=== PATIENT | male | born 1985 | race Caucasian/White ===

== ENCOUNTER 2016-08-13 12:24 | Emergency (ER) | payer OTHER ==
[2016-08-13 13:15] VITALS: RESP 16
--- NOTE | 2016-08-13 13:30 | ED ---
General Adult HPI - General Chief complaint: Back Pain/Injury Stated complaint: Back Pain Time Seen by Provider: 08/13/16 13:01 Source: patient, RN notes reviewed Mode of arrival: ambulatory Limitations: no limitations - History of Present Illness Initial comments: This is a 30-year-old male presents after a fall onto the lower back that happened around 8 AM this morning. Patient states he fell off the edge of his bed onto his tailbone while trying to stand up with his walker. Patient did not hit his head or lose consciousness. Patient states he has history of recent back surgery in June 2016. Patient states he has fallen twice in the last week and a half and he is now having the same radicular pain to the right posterior thigh as he had before surgery. Patient denies any weakness or numbness. Patient is able to ambulate with his walker but states this makes the pain in the right posterior leg worse. Patient denies any change in bowel or bladder function or loss of sensation to the saddle area. Patient is not on any anticoagulants. Patient has taken a 700 mg Tylenol for the pain today but otherwise has not any current pain medication. Patient denies any recent fever , chills, shortness breath, chest pain, abdominal pain, nausea/vomiting/diarrhea , hematuria, headache, or visual changes, or any other complaints. - Related Data Home Medications Medication Instructions Recorded Confirmed Diazepam [Valium] 10 mg PO DAILY 08/13/16 08/13/16 Gabapentin [Neurontin] 800 mg PO TID 08/13/16 08/13/16 Hydroxychloroquine Sulfate 200 mg PO BID 08/13/16 08/13/16 [Plaquenil] Previous Rx's Medication Instructions Recorded HYDROcodone/APAP 5-325MG [[place] 1 tab PO Q6HR #12 tab 08/13/16 5-325] Allergies Allergy/AdvReac Type Severity Reaction Status Date / Time prednisone Allergy Rash/Hives Verified 08/13/16 13:15 Review of Systems ROS Statement: Those systems with pertinent positive or pertinent negative responses have been documented in the HPI. ROS Other: All systems not noted in ROS Statement are negative. Past Medical History Past Medical History: Rheumatoid Arthritis (RA) Additional Past Medical History / Comment(s): hepatitis C from IV drug abuse. Hx of severe dental caries. History of gout attack, DDD, spinal stenosis History of Any Multi-Drug Resistant Organisms: None Reported Past Surgical History: Back Surgery, Orthopedic Surgery Additional Past Surgical History / Comment(s): right ankle Past Anesthesia/Blood Transfusion Reactions: No Reported Reaction Past Psychological History: Panic Disorder Additional Psychological History / Comment(s): 29-year-old male, he is single, and denies children. He currently is on disability. He relates no experience or extensive travels. He has no history of animal exposures as of late. Patient does have a history of injection drug use for about 10 years ago. Heroin was his drug of choice at that point in time. Does have some ongoing marijuana use at this time. He believes he has been tested for hepatitis C and it was negative. He does not recall HIV testing. Denies any current sexual partners. 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 Neck: The neck is supple, there is no tenderness or JVD. No cervical midline tenderness. Cardiovascular: There is a regular rate and rhythm. No murmur, rub or gallop is appreciated. Respiratory: Lungs are clear to auscultation, respirations are non-labored, breath sounds are equal. No wheezes, stridor, rales, or rhonchi. Musculoskeletal: There is tenderness to palpation over the lumbar spine and sacrum. There are well-healed surgical scars from past lumbar fusion. No sign of infection or abscess. No step-offs or deformities. Full range of motion, strength 5/5 and Sensation intact. Posterior tibial pulses 2+ bilaterally. Neurological: A&O x 3. CN II-XII intact, There are no obvious motor or sensory deficits. Coordination appears grossly intact. Speech is normal. Skin: There are well-healed surgical scars past lumbar fusion Skin is warm and dry and no rashes or lesions are noted. Psychiatric: Normal mood and affect. Limitations: no limitations Course Vital Signs 08/13/16 08/13/16 13:11 14:18 Temperature 98.1 F 98.8 F Pulse Rate 78 88 Respiratory 16 16 Rate Blood Pressure 154/91 170/88 O2 Sat by Pulse 98 98 Oximetry Medical Decision Making - Medical Decision Making Is a 30-year-old male presents with lower back pain after a fall from sitting around 8 AM this morning. On physical exam There is tenderness to palpation over the lumbar spine and sacrum. There are well-healed surgical scars from past lumbar fusion. No sign of infection or abscess. No step-offs or deformities. Full range of motion, strength 5/5 and Sensation intact. Posterior tibial pulses 2+ bilaterally. Patient is able to ambulate with his walker. Xrays of the lumbar spine and sacrum/coccyx were done and reviewed showing: X- ray lumbar spine: #1 no acute osseous lesion. #2 status post interpedicular fusion L4 through S1. X-ray sacrum/coccyx: #1 No acute osseous lesion. #2 postsurgical change. Reports read by Dr. Sales. discussed results with patient. I discussed the results with patient. Discussed that patient will be given a prescription for [place]. I discussed the patient should follow-up with his surgeon as soon as possible. I discussed return parameters. I discussed warm heating pads to the area. I discussed a prescription for Flexeril, but the patient states he has Valium at home that he was given after his surgery to take for the pain. Discussed that patient should follow up with PCP in one to 2 days or return to the [facility] for any worsening symptoms or for any further concerns. Patient was receptive to this plan and patient will be discharged home. Disposition Clinical Impression: Low back pain, History of back surgery Disposition: HOME SELF-CARE Condition: Good Instructions: Chronic Back Pain (ED) Additional Instructions: Please use the medication as prescribed. Please be aware that Toledo cause drowsiness and he should avoid drinking, or driving while taking Toledo. Please follow-up with your surgeon as soon as possible. Please follow-up with family doctor in the next 2 days of symptoms have not improved. Please return to emergency room if the symptoms increase or worsen or for any other concerns. Prescriptions: HYDROcodone/APAP 5-325MG [T[place]edo 5-325] 1 tab PO Q6HR #12 tab Referrals: Solange Tong MD [Primary Care Provider] - 1-2 days Time of Disposition: 14:29
[2016-08-13 14:19] VITALS: BP 170/88; PULSE 88; TEMP 98.8
--- NOTE | 2016-08-13 14:23 | XR ---
EXAMINATION TYPE: XR sacrum coccyx DATE OF EXAM ORDERED: 08/13/2016 1:55 PM HISTORY: Pain following trauma. COMPARISON: None. FINDINGS: There is an incompletely visualized in a vertex or effusion of the lower lumbar spine. No fracture or other acute osseous lesion is seen. IMPRESSION: 1. NO ACUTE OSSEOUS LESION. 2. POSTSURGICAL CHANGE.
--- NOTE | 2016-08-13 14:24 | XR ---
EXAMINATION TYPE: XR lumbar spine 2 or 3V DATE OF EXAM ORDERED: 08/13/2016 1:55 PM HISTORY: Pain following trauma. COMPARISON: Previous study dated 07/09/2016. FINDINGS: There has been interclavicular fusion at L4, L5 and S1. Spacing material has been placed. Alignment remains normal. No fractures are seen. There is minor hypertrophic spondylosis at L2-3. The pedicles above the fusion are intact. IMPRESSION: 1. NO ACUTE OSSEOUS LESION. 2. STATUS POST INTERPEDICULAR FUSION L4-S1.
[2016-08-13] MEDS ORDERED: HYDROcodone/APAP 5-325MG 1 EACH TAB PO STA (14:25)
== END 2016-08-13 14:35 | disposition home or self-care (01) ==
LOC: EC 12:24
DX: M54.5 Low back pain (principal); W06.XXXA Fall from bed, initial encounter; M06.9 Rheumatoid arthritis, unspecified; B19.20 Unspecified viral hepatitis C without hepatic coma; Z98.1 Arthrodesis status; Z88.8 Allergy status to other drugs, medicaments and biological substances; Z79.899 Other long term (current) drug therapy
CPT/HCPCS: 72100; 72220; 99283

== ENCOUNTER → 2016-09-18 | Outpatient (CLI) | payer OTHER ==
--- NOTE | 2016-09-18 14:17 | XR ---
EXAMINATION TYPE: XR lumbar spine 2 or 3V DATE OF EXAM: 09/18/2016 2:07 PM CLINICAL HISTORY: Surgery in June progress study, lumbar disc degeneration per order. TECHNIQUE: Frontal and lateral images of the lumbar spine are obtained. COMPARISON: Lumbar spine x-ray August 13, 2016. FINDINGS: There are 5 lumbar type vertebral bodies redemonstrated. The lumbar spine redemonstrates satisfactory alignment without evidence of acute fracture or dislocation. Metallic disc material L4-L 5 and L5-S1 levels is stable. Posterior interpedicular rods and screws bilaterally from L4 through S1 levels is redemonstrated. Vertebral body heights and disk space heights are within normal limits abo ve surgical levels. Mild anterior spurring at anterior superior L3 endplate is stable. The overlying soft tissue appears unremarkable. IMPRESSION: Postsurgical changes L4-S1 level with stable and satisfactory alignment noted.
== END | disposition home or self-care (01) ==
LOC: RADXRMAIN 13:44
PROVIDERS: ATTEND Neurological Surgery
DX: M51.27 Other intervertebral disc displacement, lumbosacral region (principal); M51.36 Other intervertebral disc degeneration, lumbar region; Z98.890 Other specified postprocedural states
CPT/HCPCS: 72100

== ENCOUNTER 2016-10-27 09:36 | Emergency (ER) | payer OTHER ==
[2016-10-27] MEDS ORDERED: HYDROmorphone 1 MG/ML 1 ML SYRINGE IM STA ×2 (10:07→12:19)
--- NOTE | 2016-10-27 10:21 | ED ---
General Adult HPI - General Chief complaint: Back Pain/Injury Stated complaint: No control of bladder or stool Time Seen by Provider: 10/27/16 09:57 Source: patient, RN notes reviewed, old records reviewed Mode of arrival: wheelchair Limitations: no limitations - History of Present Illness Initial comments: 30-year-old male with history of low back disc disease, status post lumbar spinal fusion in June 2016, presenting for low back pain. Patient states that the right low portion of his back has been having worsening pain over the past several months. States that at times he gets radiating pain down his right leg. States the he was concerned because yesterday he had 2 episodes of urinary incontinence. He denies any bowel incontinence. States he is constipated at baseline. States he did follow-up with his neurosurgeon Dr. Guadalupe, one week ago who recommended he have a CT scan of his lumbar spine. He denies any new injury or fall. He has tried his home medications without much improvement of pain. - Related Data Home Medications Medication Instructions Recorded Confirmed Diazepam [Valium] 10 mg PO TID PRN 08/13/16 10/27/16 Hydroxychloroquine Sulfate 200 mg PO BID 08/13/16 10/27/16 [Plaquenil] Allopurinol [Zyloprim] 100 mg PO DAILY 10/27/16 10/27/16 Gabapentin 600 mg PO TID 10/27/16 10/27/16 Indomethacin [Indocin] 50 mg PO DAILY PRN 10/27/16 10/27/16 oxyCODONE-APAP 10-325MG [Percocet 1 tab PO TID PRN 10/27/16 10/27/16 10-325 mg] Allergies Allergy/AdvReac Type Severity Reaction Status Date / Time prednisone AdvReac Rash/Hives Verified 10/27/16 11:15 Review of Systems ROS Statement: Those systems with pertinent positive or pertinent negative responses have been documented in the HPI. ROS Other: All systems not noted in ROS Statement are negative. Past Medical History Past Medical History: Rheumatoid Arthritis (RA) Additional Past Medical History / Comment(s): hepatitis C from IV drug abuse. Hx of severe dental caries. History of gout attack, DDD, spinal stenosis History of Any Multi-Drug Resistant Organisms: None Reported Past Surgical History: Back Surgery, Orthopedic Surgery Additional Past Surgical History / Comment(s): right ankle Past Anesthesia/Blood Transfusion Reactions: No Reported Reaction Past Psychological History: Panic Disorder Additional Psychological History / Comment(s): 29-year-old male, he is single, and denies children. He currently is on disability. He relates no experience or extensive travels. He has no history of animal exposures as of late. Patient does have a history of injection drug use for about 10 years ago. Heroin was his drug of choice at that point in time. Does have some ongoing marijuana use at this time. He believes he has been tested for hepatitis C and it was negative. He does not recall HIV testing. Denies any current sexual partners. 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 No acute distress. Does not appear acutely ill. Eyes: CATA, EOM intact. No nystagmus. No scleral icterus. HENT: Atraumatic, normocephalic. Mucous membranes moist. Trachea midline. Neck: The neck is supple, there is no tenderness or JVD. Cardiovascular: Regular rate and rhythm. No murmur, rub, or gallop is appreciated. Distal pulses intact. Respiratory: Lungs are clear to auscultation bilaterally. No wheezes, rales, rhonchi. No respiratory distress. Gastrointestinal: Soft, Nontender. No rebound or guarding. Non-distended. No masses or organomegaly noted. No CVA tenderness. Musculoskeletal: Right lower back tenderness. Well healed lower back surgical incisions. Normal ROM. No gross deformity. No strength deficits. Neurological: A&Ox3. CN II-XII grossly intact, lower extremity strength is 5 out of 5 bilaterally. Sensation intact throughout lower extremities. No saddle paresthesis. Coordination appears grossly intact. Speech is normal. Normal gait. Skin: Skin is warm and dry and no rashes or lesions are noted. Psychiatric: Cooperative, appropriate mood & affect, normal judgment. Limitations: no limitations Course Vital Signs 10/27/16 10/27/16 09:51 11:53 Temperature 98.3 F 98.1 F Pulse Rate 87 76 Respiratory 18 16 Rate Blood Pressure 150/97 162/82 O2 Sat by Pulse 98 95 Oximetry Medical Decision Making - Medical Decision Making 30-year-old male with history of low back pain and disk disease. CT imaging was performed which shows anterior disc protrusion at the L2-3 interspace, however this appears unchanged from prior. Patient is without saddle paresthesias. Bladder scan did show about 470 mL of urine. However patient was able to urinate. Patient's gait is intact. Patient wa given pain control. I did attempt to contact Dr. Guadalupe, his neurosurgeon, however I was unable to reach him as he is in the OR at [facility] all day. The office stated that his only contact would be an after hours call service. I discussed this with the patient. Patient was offered transfer to [facility] versus another hospital with neurosurgical services. Offered admission at this facility for MRI. Pt declines this at this time. States his pain is much better and he feels he can go home. Recommend that he does follow up closely with neurosurgery for further pain management and evaluation of possible repair of the L2 area. Patient otherwise without evidence of acute cauda equina syndrome or acute cord compression. Discussed that it is concerning he did have bladder incontinence yesterday, but today appears stable. Discussed if symptoms are worsening to return to the emergency room right away. Pt has pain medications at home. Patient is agreeable with plan and discharge home. - Radiology Data Radiology results: report reviewed, image reviewed Disposition Clinical Impression: Low back pain, Intervertebral disk disease Disposition: HOME SELF-CARE Condition: Stable Instructions: Acute Low Back Pain (ED), Chronic Back Pain (ED) Additional Instructions: Please follow up with Dr. Guadalupe as soon as possible. If you symptoms worsen, or you have bladder incontinence, please return right away. Referrals: Solange Tong MD [Primary Care Provider] - 1-2 days Time of Disposition: 12:29
--- NOTE | 2016-10-27 11:05 | CT ---
EXAMINATION TYPE: CT sacrum wo con DATE OF EXAM: 10/27/2016 10:54 AM COMPARISON: NONE HISTORY: No control of bladder or stool; History of back surgery * 3 CT DLP: 1133 mGycm CONTRAST: None TECHNIQUE: CT of the lumbar spine is performed on a spiral scan at 3 mm thick sections. Reconstructed images are performed in the coronal and sagittal planes. FINDINGS: Disc spaces are present L4-5 L5-S1. Pedicle screws are present L4-S1. T12-L1: No focal disc herniation or significant disc bulge is evident. No spinal canal stenosis or neural foraminal stenosis is present. L1-L2: No focal disc herniation or significant disc bulge is evident. No spinal canal stenosis or n eural foraminal stenosis is present L2-L3: Broad-based disc bulge has moderate anterior thecal sac compression. No AP spinal canal stenos is is present. Neural foramen are patent. L3-L4: No focal disc herniation or significant disc bulge is evident. No spinal canal stenosis or n eural foraminal stenosis is present L4-L5, L5-S1: These levels have limited evaluation due to beam hardening artifact from the disc space rs. Spinal canal evaluation is nondiagnostic. The foramen as visualized appear within normal limits. Sacrum and coccyx: Sacrum and coccyx are evaluated utilizing 3 mm thick sections. Sacroiliac joint degenerative changes are present. No acute osseous abnormality is evident. Sacral ca nal is patent. No acute fractures are identified. Sagittal reconstructed images are reviewed. IMPRESSION: 1. Limitation due to the disc spacers at the L4-5 and L5-S1 level. 2. Disc bulging with moderate anterior thecal sac compression L2-3. No stenosis is present. 3. The lower sacrum and the coccyx appear unremarkable. 4. No canal stenosis identified to account for loss of bladder and intestinal control. Consider MRI o f the thoracolumbar junction for additional evaluation.
[2016-10-27 11:54] VITALS: BP 162/82; PULSE 76; RESP 16; TEMP 98.1
== END 2016-10-27 13:08 | disposition home or self-care (01) ==
LOC: EC 09:36
DX: M51.26 Other intervertebral disc displacement, lumbar region (principal); M10.9 Gout, unspecified; F41.0 Panic disorder [episodic paroxysmal anxiety]; M06.9 Rheumatoid arthritis, unspecified; Z79.899 Other long term (current) drug therapy; Z88.8 Allergy status to other drugs, medicaments and biological substances; Z98.1 Arthrodesis status
CPT/HCPCS: 51798; 72131; 72192; 99284; 96372 ×2; J1170

== ENCOUNTER → 2016-11-06 | Outpatient (CLI) | payer OTHER ==
--- NOTE | 2016-11-06 22:10 | MR ---
EXAMINATION TYPE: MR lumbar spine wo con DATE OF EXAM: 11/06/2016 9:44 PM COMPARISON: MRI lumbar spine April 30, 2016. Lumbar spine CT October 27, 2016. HISTORY: low back pain, previous surgery 2 years ago TECHNIQUE: Multiplanar, multisequence imaging of the lumbar spine is performed without IV contrast. FINDINGS: Sagittal images of the lumbar spine show vertebral body heights and alignment to appear sat isfactory. There is artifact from metallic disc material L4-L5 and L5-S1 levels. There is artifact fr om posterior fusion hardware L4-S1 levels bilaterally. Multilevel disc desiccation is redemonstrated above surgical levels. There is redemonstration of mild to moderate disc space narrowing L2-L3 level. Small posterior disc herniation is redemonstrated this level on sagittal images. The conus medullar is is normal remains normal in position and signal ending at inferior L1 vertebral body level. The erlinda ne marrow signal intensity is within normal limits. Mild multilevel anterior spurring is redemonstrat ed most prominent anterior superior L3 endplate. Axial images at T12-L1 level demonstrates mild broad disc bulge minimally effacing anterior thecal sa c, bilateral neural foramina are patent. No significant change from prior study is seen. Axial images at L1-L2 level are felt to remain within normal limits. Axial images at L2-L3 level show mild to moderate broad-based posterior disc protrusion mildly effaci ng anterior thecal sac on axial image 31 with mild bilateral anterior inferior neural foraminal narro wing. No significant change from prior study is seen. Axial images at L3-L4 level show broad-based disc protrusion mildly effacing anterior thecal sac, mil d bilateral neural foraminal narrowing is present. No significant change from prior study is seen. Axial images at L4-L5 level show artifact from posterior fusion hardware. Spinal canal is preserved a fter disc replacement. Left-sided neural foramen is patent. Right-sided is obscured by artifact. Axial images at L5-S1 level show artifact from surgical hardware suspect bilateral laminectomy defect s with scar tissue. Spinal canal is fairly well preserved. Left-sided neural foramen is patent. Right side is likely narrowed but obscured by artifact from fusion hardware. IMPRESSION: Interval improvement in lower lumbar levels after surgical change. Suboptimal evaluation of right-sided neural foramina due to artifact. Multilevel degenerative changes in the upper to mid l umbar spine as detailed above most prominent at L2-L3 level.
== END | disposition home or self-care (01) ==
LOC: RADMRIMAIN 09:11
PROVIDERS: ATTEND Neurological Surgery
DX: M47.816 Spondylosis without myelopathy or radiculopathy, lumbar region (principal); E66.09 Other obesity due to excess calories; M06.09 Rheumatoid arthritis without rheumatoid factor, multiple sites; M15.0 Primary generalized (osteo)arthritis; Z79.52 Long term (current) use of systemic steroids; Z79.899 Other long term (current) drug therapy; Z98.890 Other specified postprocedural states
CPT/HCPCS: 36415; 72148; 82040; 82565; 84450; 84460; 84520; 84550; 85025; 86038; 86140; 86200; 86431

== ENCOUNTER → 2016-11-06 | Outpatient (CLI) | payer OTHER ==
[2016-11-06 10:12] LABS: Basophils % (A) 0 %; CH 28.8; CHCM 34.9; Eosinophils # (A) 0.1 k/uL (0-0.7); Eosinophils % (A) 1 %; HCT 46.2 % (39.0-53.0); HDW 3.11; HGB 15.7 gm/dL (13.0-17.5); Luc # (Auto) 0.11; Luc % (Auto) 1; Lymphocytes # (A) 1.6 k/uL (1.0-4.8); Lymphocytes % (A) 17 %; MCH 28.2 pg (25.0-35.0); MCHC 34.1 g/dL (31.0-37.0); MCV 82.8 fL (80.0-100.0); Mean Platelet Volume 7.6; Monocytes # (A) 0.3 k/uL (0-1.0); Monocytes % (A) 3 %; Neutrophils # (A) 7.3 k/uL (1.3-7.7); Neutrophils % (A) 78 %; RBC 5.58 m/uL (4.30-5.90); RDW 13.9 % (11.5-15.5); WBC 9.4 k/uL (3.8-10.6); WBC (Perox) 9.55
[2016-11-06 11:32] LABS: ALT 26 U/L (21-72); AST 25 U/L (17-59); Blood Urea Nitrogen 17 mg/dL (9-20); C Reactive Protein <5.0 mg/L (<10.0); Non-African American GFR(MDRD) >60 (>60 ml/min/1.73 sqM)
[2016-11-06 11:35] LABS: Rheumatoid Factor, Qnt <9 IU/mL (<12)
--- NOTE | 2016-11-06 15:55 | XR ---
EXAMINATION TYPE: 4 views bilateral wrists. 3 views bilateral hands. DATE OF EXAM: 11/06/2016 11:31 AM COMPARISON: NONE HISTORY: 30-year-old male long-term drug therapy, rheumatoid arthritis. FINDINGS: Wrist: Slight negative ulnar variance on both sides. The radiocarpal and distal radioulnar joints as well as the midcarpal compartment appear intact. On the right, small cystic changes present within the lunat e probably representing an intraosseous ganglion. No erosions of the ulnar styloid process or carpal or intercarpal joint space narrowing. Hands: No discrete marginal erosions. No narrowing of the IP joints. There may be slight periarticular osteo penia within the fingers. IMPRESSION: 1. Slight periarticular osteopenia of the fingers and possible small subcortical cysts versus intraos seous ganglion within the right lunate bone. 2. Otherwise, no marginal erosions or joint space narrowing of RA.
== END ==
LOC: LABWHC1 09:27
PROVIDERS: ATTEND Internal Medicine Rheumatology
DX: M06.09 Rheumatoid arthritis without rheumatoid factor, multiple sites (principal); M15.0 Primary generalized (osteo)arthritis; E66.09 Other obesity due to excess calories; Z79.899 Other long term (current) drug therapy; Z79.52 Long term (current) use of systemic steroids; M47.816 Spondylosis without myelopathy or radiculopathy, lumbar region
CPT/HCPCS: 36415; 82040; 82565; 84450; 84460; 84520; 84550; 85025; 86038; 86140; 86200; 86431

== ENCOUNTER 2016-12-30 08:54 | Emergency (ER) | payer OTHER ==
--- NOTE | 2016-12-30 09:15 | ED ---
Back Pain HPI - General Chief Complaint: Back Pain/Injury Stated Complaint: Back Pain Time Seen by Provider: 12/30/16 09:03 Source: patient, RN notes reviewed Limitations: no limitations - History of Present Illness Initial Comments: This a 31-year-old male presents emergency Department chief complaint low back pain. Patient states he had surgery in June which she has hardware in his lumbar spine. Patient states that on Thursday he was at a baseball came in which he fell on the steps due to the rain. Patient states he fell directly onto his back. Patient denies any bowel bladder incontinence or retention. Patient does admit to radiating pain down bilateral legs to his feet. Patient did not contact his surgeon at this point. Patient denies any saddle anesthesias or lower extremity paresthesias. Patient has increased pain with movement states it is better when he is laying down. Patient is currently taking Percocet for his pain. Patient states his surgeon was Dr. Guadalupe. Patient denies any other complaints at this time. - Related Data Home Medications Medication Instructions Recorded Confirmed Diazepam [Valium] 10 mg PO TID 08/13/16 12/30/16 Hydroxychloroquine Sulfate 200 mg PO BID 08/13/16 12/30/16 [Plaquenil] Allopurinol [Zyloprim] 100 mg PO DAILY 10/27/16 12/30/16 Gabapentin 600 mg PO TID 10/27/16 12/30/16 oxyCODONE-APAP 10-325MG [Percocet 1 tab PO TID PRN 10/27/16 12/30/16 10-325 mg] Colchicine 0.6 mg PO DAILY 12/30/16 12/30/16 Meloxicam [Mobic] 15 mg PO DAILY 12/30/16 12/30/16 predniSONE 5 mg PO DAILY 12/30/16 12/30/16 Allergies Allergy/AdvReac Type Severity Reaction Status Date / Time No Known Allergies Allergy Verified 12/30/16 09:33 Review of Systems ROS Statement: Those systems with pertinent positive or pertinent negative responses have been documented in the HPI. ROS Other: All systems not noted in ROS Statement are negative. Past Medical History Past Medical History: Rheumatoid Arthritis (RA) Additional Past Medical History / Comment(s): hepatitis C from IV drug abuse. Hx of severe dental caries. History of gout attack, DDD, spinal stenosis History of Any Multi-Drug Resistant Organisms: None Reported Past Surgical History: Back Surgery, Orthopedic Surgery Additional Past Surgical History / Comment(s): right ankle. back fusion with cage Lumbar Past Anesthesia/Blood Transfusion Reactions: No Reported Reaction Past Psychological History: Panic Disorder Smoking Status: Never smoker Past Alcohol Use History: None Reported Past Drug Use History: None Reported General Exam Limitations: no limitations General appearance: alert, in no apparent distress Neck exam: Present: normal inspection, full ROM. Absent: tenderness, meningismus, lymphadenopathy Respiratory exam: Present: normal lung sounds bilaterally. Absent: respiratory distress, wheezes, rales, rhonchi, stridor Cardiovascular Exam: Present: regular rate, normal rhythm, normal heart sounds. Absent: systolic murmur, diastolic murmur, rubs, gallop, clicks GI/Abdominal exam: Present: soft, normal bowel sounds. Absent: distended, tenderness, guarding, rebound, rigid Extremities exam: Present: normal inspection, full ROM, normal capillary refill , other (Lower extremity strength equal bilaterally, full range of motion neurovascular intact equal color equal warmth). Absent: tenderness, pedal edema , joint swelling, calf tenderness Back exam: Present: full ROM (Moderate discomfort with range of motion), tenderness (Diffuse lumbar moderate), paraspinal tenderness, vertebral tenderness, other (Minimal discomfort with straight leg raise bilaterally). Absent: normal inspection (Old surgical scars noted) Neurological exam: Present: alert, oriented X3, CN II-XII intact, reflexes normal. Absent: motor sensory deficit Skin exam: Present: warm, dry, intact, normal color. Absent: rash Course Vital Signs 12/30/16 08:58 Temperature 98.7 F Pulse Rate 95 Respiratory 20 Rate Blood Pressure 197/99 O2 Sat by Pulse 97 Oximetry Medical Decision Making - Medical Decision Making 31-year-old male present emergency department for fall back pain. There is no interval changes noted on his x-ray ordered abnormality's of his postsurgical changes. Patient did have some wedging of T12 though patient is no tenderness over this region. This likely is old or developmental. Patient has no red flag symptoms. He is highly advised to follow-up with his surgeon within the next one to 2 days and that he may require MRI ordered by his surgeon. Patient is on chronic pain meds do not given a prescription for pain meds at this time. Return parameters were discussed. Disposition Clinical Impression: Lumbar back pain Disposition: HOME SELF-CARE Condition: Stable Instructions: Chronic Back Pain (ED) Additional Instructions: Please return to the Emergency Department if symptoms worsen or any other concerns. Follow-up with your surgeon in the next one to 2 days. Referrals: Solange Tong MD [Primary Care Provider] - 1-2 days Time of Disposition: 09:37
--- NOTE | 2016-12-30 09:28 | XR ---
EXAMINATION TYPE: XR lumbar spine 2 or 3V DATE OF EXAM ORDERED: 12/30/2016 HISTORY: Pain. COMPARISON: Previous study dated 09/18/2016. FINDINGS: There has been a previous interpedicular fusion with spacer placement at L4, L5 and S1. Po sition and alignment appear normal and unchanged. There is mild hypertrophic spondylosis at L3-4 unch anged from previous. There is minimal wedging of the T12 vertebral body which is likely developmental . This area was not well imaged on the previous study and is not imaged on a CT scan dated 10/17/2016. Nor was it imaged on a previous MRI dated 11/06/2016. IMPRESSION: 1. STATUS POST INTERPEDICULAR FUSION, L4 S1. 2. MINIMAL WEDGING OF THE T12 VERTEBRAL BODY LIKELY DEVELOPMENTAL.
[2016-12-30] MEDS ORDERED: HYDROmorphone 1 MG/ML 1 ML SYRINGE IM STA (09:37)
[2016-12-30 09:48] VITALS: PULSE 87; RESP 17; TEMP 98.3
[2016-12-30 09:55] VITALS: BP 156/102
== END 2016-12-30 10:04 | disposition home or self-care (01) ==
LOC: EC 08:54
DX: M54.5 Low back pain (principal); M06.9 Rheumatoid arthritis, unspecified; F41.0 Panic disorder [episodic paroxysmal anxiety]; Z79.52 Long term (current) use of systemic steroids; Z79.1 Long term (current) use of non-steroidal anti-inflammatories (NSAID); Z79.899 Other long term (current) drug therapy; W10.9XXA Fall (on) (from) unspecified stairs and steps, initial encounter; Y93.64 Activity, baseball; Y92.320 Baseball field as the place of occurrence of the external cause
CPT/HCPCS: 72100; 99283; 96372; J1170

== ENCOUNTER 2017-01-03 12:14 | Emergency (ER) | payer OTHER ==
[2017-01-03 12:39] VITALS: BP 155/89; PULSE 99; RESP 20; TEMP 98.5
[2017-01-03] MEDS ORDERED: HYDROmorphone 1 MG/ML 1 ML SYRINGE IM STA (12:41)
--- NOTE | 2017-01-03 12:50 | ED ---
Back Pain HPI - General Chief Complaint: Back Pain/Injury Stated Complaint: Back Pain, post surgical Time Seen by Provider: 01/03/17 12:21 Source: patient Limitations: no limitations - History of Present Illness Initial Comments: 31-year-old male complains of ongoing back pain that chronic very patient states he had surgery in June had a fusion from a neurosurgeon in [place]. Patient states a week ago he fell at a tigers game slipped and fell on the cement steps. Patient states he did come here this past week and was given pain medications. Patient was told to follow-up with his surgeon in which she did call but he never got a call back today he got the on-call surgeon due to them not being familiar with them they told him to call back on Thursday. Patient states his pain is worse he canceled physical therapy appointments this week. He denies any bowel bladder incontinence or saddle numbness. He denies any abdominal pain. Patient states he is having a lot of hard time getting comfortable. Patient has a chronic history of rheumatoid arthritis and chronic gout as well. Patient has been on prednisone for the last year and has gained a lot of weight. Eyes any neck pain or head injury at this time. MD Complaint: back pain -: days(s) Place: other Radiation: right leg Quality: aching Improves With: immobilization Worsens With: none, immobilization - Related Data Home Medications Medication Instructions Recorded Confirmed Diazepam [Valium] 10 mg PO TID 08/13/16 12/30/16 Hydroxychloroquine Sulfate 200 mg PO BID 08/13/16 12/30/16 [Plaquenil] Allopurinol [Zyloprim] 100 mg PO DAILY 10/27/16 12/30/16 Gabapentin 600 mg PO TID 10/27/16 12/30/16 oxyCODONE-APAP 10-325MG [Percocet 1 tab PO TID PRN 10/27/16 12/30/16 10-325 mg] Colchicine 0.6 mg PO DAILY 12/30/16 12/30/16 Meloxicam [Mobic] 15 mg PO DAILY 12/30/16 12/30/16 predniSONE 5 mg PO DAILY 12/30/16 12/30/16 Allergies Allergy/AdvReac Type Severity Reaction Status Date / Time No Known Allergies Allergy Verified 01/03/17 12:39 Review of Systems ROS Statement: Those systems with pertinent positive or pertinent negative responses have been documented in the HPI. ROS Other: All systems not noted in ROS Statement are negative. Constitutional: Denies: fever Endocrine: Denies: fatigue Gastrointestinal: Denies: abdominal pain, nausea, vomiting, diarrhea, constipation Musculoskeletal: Reports: back pain Skin: Denies: rash Neurological: Reports: weakness, abnormal gait (slow). Denies: headache, numbness, paresthesias Past Medical History Past Medical History: Rheumatoid Arthritis (RA) Additional Past Medical History / Comment(s): hepatitis C from IV drug abuse. Hx of severe dental caries. History of gout attack, DDD, spinal stenosis History of Any Multi-Drug Resistant Organisms: None Reported Past Surgical History: Back Surgery, Orthopedic Surgery Additional Past Surgical History / Comment(s): right ankle. back fusion with cage Lumbar Past Anesthesia/Blood Transfusion Reactions: No Reported Reaction Past Psychological History: Panic Disorder Smoking Status: Never smoker Past Alcohol Use History: None Reported Past Drug Use History: None Reported General Exam Limitations: no limitations General appearance: alert, in no apparent distress Neck exam: Present: normal inspection. Absent: tenderness, meningismus, lymphadenopathy Respiratory exam: Present: normal lung sounds bilaterally. Absent: respiratory distress, wheezes, rales, rhonchi, stridor Cardiovascular Exam: Present: regular rate, normal rhythm, normal heart sounds. Absent: systolic murmur, diastolic murmur, rubs, gallop, clicks GI/Abdominal exam: Present: soft, normal bowel sounds. Absent: distended, tenderness, guarding, rebound, rigid Back exam: Present: tenderness (lower back), muscle spasm, paraspinal tenderness , vertebral tenderness. Absent: full ROM, rash noted Neurological exam: Present: alert, oriented X3, CN II-XII intact, abnormal gait , reflexes normal Psychiatric exam: Present: normal affect, normal mood Skin exam: Present: warm, dry, intact, normal color. Absent: rash Course Vital Signs 01/03/17 12:33 Temperature 98.5 F Pulse Rate 99 Respiratory 20 Rate Blood Pressure 155/89 O2 Sat by Pulse 96 Oximetry Medical Decision Making - Medical Decision Making Patient had x-rays 2 days ago while here. Patient advised to closely follow-up with neurosurgeon for further evaluation and testing. Patient had a follow-up MRI about a month ago and is currently in physical therapy. Patient to continue with his current medical regimen and return if anything worsens. Disposition Clinical Impression: Degeneration of intervertebral disc, Strain of lumbar region, Sciatica, Lumbar radiculopathy Disposition: HOME SELF-CARE Condition: Stable Instructions: Acute Low Back Pain (ED), Chronic Back Pain (ED) Referrals: Solange Tong MD [Primary Care Provider] - 1-2 days Time of Disposition: 12:49
== END 2017-01-03 13:05 | disposition home or self-care (01) ==
LOC: EC 12:14
DX: M51.16 Intervertebral disc disorders with radiculopathy, lumbar region (principal); S39.012D Strain of muscle, fascia and tendon of lower back, subsequent encounter; M06.9 Rheumatoid arthritis, unspecified; M10.9 Gout, unspecified; Z79.1 Long term (current) use of non-steroidal anti-inflammatories (NSAID); Z79.52 Long term (current) use of systemic steroids; Z79.899 Other long term (current) drug therapy; Z98.1 Arthrodesis status; W01.0XXD Fall on same level from slipping, tripping and stumbling without subsequent striking against object, subsequent encounter
CPT/HCPCS: 99283; 96372; J1170

== ENCOUNTER → 2017-01-03 | Outpatient (CLI) | payer OTHER ==
[2017-01-03 11:58] LABS: Basophils % (A) 0 %; CH 29.9; CHCM 35.1; Eosinophils # (A) 0.1 k/uL (0-0.7); Eosinophils % (A) 1 %; HCT 44.8 % (39.0-53.0); HDW 2.87; HGB 15.3 gm/dL (13.0-17.5); Luc # (Auto) 0.12; Luc % (Auto) 2; Lymphocytes # (A) 1.7 k/uL (1.0-4.8); Lymphocytes % (A) 22 %; MCH 29.1 pg (25.0-35.0); MCHC 34.1 g/dL (31.0-37.0); MCV 85.3 fL (80.0-100.0); Mean Platelet Volume 7.8; Monocytes # (A) 0.3 k/uL (0-1.0); Monocytes % (A) 4 %; Neutrophils # (A) 5.6 k/uL (1.3-7.7); Neutrophils % (A) 72 %; RBC 5.26 m/uL (4.30-5.90); RDW 13.7 % (11.5-15.5); WBC 7.8 k/uL (3.8-10.6); WBC (Perox) 7.29
[2017-01-03 12:13] LABS: ALT 39 U/L (21-72); AST 31 U/L (17-59); Blood Urea Nitrogen 15 mg/dL (9-20); C Reactive Protein 6.1 mg/L (<10.0); Non-African American GFR(MDRD) >60 (>60 ml/min/1.73 sqM); Uric Acid 6.8 mg/dL (3.5-8.5)
== END | disposition home or self-care (01) ==
LOC: LABWHC1 11:33
PROVIDERS: ATTEND Internal Medicine Rheumatology
DX: E66.09 Other obesity due to excess calories (principal); M06.09 Rheumatoid arthritis without rheumatoid factor, multiple sites; M15.0 Primary generalized (osteo)arthritis; M47.816 Spondylosis without myelopathy or radiculopathy, lumbar region; Z79.52 Long term (current) use of systemic steroids; Z79.899 Other long term (current) drug therapy
CPT/HCPCS: 36415; 82040; 82565; 84450; 84460; 84520; 84550; 85025; 86140

== ENCOUNTER 2017-03-02 19:11 | Emergency (ER) | payer OTHER ==
[2017-03-02 19:21] VITALS: BP 186/115; PULSE 79; RESP 18; TEMP 98.4
[2017-03-02] MEDS ORDERED: PENICILLIN G BENZATHINE 1,200,000 UNIT/2 ML SYRINGE IM STA (20:21)
[2017-03-02] MEDS ORDERED: HYDROmorphone 1 MG/ML 1 ML SYRINGE IM STA (20:22)
[2017-03-02] MEDS ORDERED: ONDANSETRON ODT 4 MG TAB PO STA (20:22)
--- NOTE | 2017-03-02 20:58 | ED ---
ENT HPI - General Chief complaint: Dental/Oral Stated complaint: Dental Pain Time Seen by Provider: 03/02/17 20:05 Source: patient, family Mode of arrival: ambulatory Limitations: no limitations - History of Present Illness Initial comments: 31-year-old male patient presented to emergency department today for evaluation of right upper dental pain. Patient states that he started to have pain on Thursday. He states he did attempt to call for a dentist appointment however could not get in until this coming Thursday. He states that the pain is severe, however he has been nauseated and did vomit this morning and has been unable to take his home pain medication. Patient states that he thinks he may have an abscess. Patient states that he felt like he had a fever last evening. He denies any difficulty opening his mouth or swallowing. He states that the pain is causing a headache. Patient denies any chills, shortness breath, abdominal pain, constipation, diarrhea, numbness, tingling, hematuria, headache, or visual changes. States he has chronic back pain and he takes oxycodone for this. - Related Data Home Medications Medication Instructions Recorded Confirmed Diazepam [Valium] 10 mg PO TID 08/13/16 03/02/17 Hydroxychloroquine Sulfate 200 mg PO BID 08/13/16 03/02/17 [Plaquenil] Allopurinol [Zyloprim] 100 mg PO DAILY 10/27/16 03/02/17 Gabapentin 600 mg PO TID 10/27/16 03/02/17 oxyCODONE-APAP 10-325MG [Percocet 1 tab PO TID PRN 10/27/16 03/02/17 10-325 mg] Colchicine 0.6 mg PO DAILY 12/30/16 03/02/17 Meloxicam [Mobic] 15 mg PO DAILY 12/30/16 03/02/17 Lyrica (Unknown Dose) 1 dose DIRECTED 03/02/17 03/02/17 Previous Rx's Medication Instructions Recorded Amoxic-Pot Clav 875-125Mg 1 tab PO Q12HR #20 tablet 03/02/17 [Augmentin 875-125] Allergies Allergy/AdvReac Type Severity Reaction Status Date / Time prednisone Allergy Rash/Hives Verified 03/02/17 20:28 Review of Systems ROS Statement: Those systems with pertinent positive or pertinent negative responses have been documented in the HPI. ROS Other: All systems not noted in ROS Statement are negative. Past Medical History Past Medical History: Rheumatoid Arthritis (RA) Additional Past Medical History / Comment(s): hepatitis C from IV drug abuse. Hx of severe dental caries. History of gout attack, DDD, spinal stenosis History of Any Multi-Drug Resistant Organisms: None Reported Past Surgical History: Back Surgery, Orthopedic Surgery Additional Past Surgical History / Comment(s): right ankle. back fusion with cage Lumbar Past Anesthesia/Blood Transfusion Reactions: No Reported Reaction Past Psychological History: Panic Disorder Smoking Status: Never smoker Past Alcohol Use History: None Reported Past Drug Use History: None Reported General Exam Limitations: no limitations General appearance: alert, in no apparent distress ENT exam: Present: normal exam, normal oropharynx, mucous membranes moist, other (Mouth exam reveals very poor dentition. Patient has numerous broken teeth on the right upper, gingiva is swollen and red, no drainable area of abscess. No facial swelling noted.) Neck exam: Present: normal inspection. Absent: tenderness, meningismus, lymphadenopathy Respiratory exam: Present: normal lung sounds bilaterally. Absent: respiratory distress, wheezes, rales, rhonchi, stridor Cardiovascular Exam: Present: regular rate, normal rhythm, normal heart sounds. Absent: systolic murmur, diastolic murmur, rubs, gallop, clicks GI/Abdominal exam: Present: soft, normal bowel sounds. Absent: distended, tenderness, guarding, rebound, rigid Neurological exam: Present: alert, oriented X3, CN II-XII intact Psychiatric exam: Present: normal affect, normal mood, anxious Skin exam: Present: warm, dry, intact, normal color. Absent: rash Course Vital Signs 03/02/17 19:16 Temperature 98.4 F Pulse Rate 79 Respiratory 18 Rate Blood Pressure 186/115 O2 Sat by Pulse 99 Oximetry Medical Decision Making - Medical Decision Making 31-year-old male patient presented to emergency department today for evaluation of right upper dental pain. Physical exam did reveal multiple fractured teeth at the gumline, gingival erythema and swelling. No area of drainable abscess palpated. Patient was also having some nausea, and states he was unable to take his home pain or chronic medications. Patient was given injections of penicillin, Dilaudid, and Zofran ODT. Patient was feeling much improved prior to discharge. Patient states that he was able to hold down water. Patient was discharged with a prescription for Augmentin and instructed to take his home pain medications. Patient does have an appointment with a dentist on Thursday. He is encouraged to keep this appointment. Instructed to follow up with his primary care physician for recheck in 1-2 days. Instructed to return here immediately for any new, worsening, or concerning symptoms. Patient verbalizes understanding and agrees with this plan. Disposition Clinical Impression: Dental abscess, Fractured tooth Disposition: HOME SELF-CARE Condition: Good Instructions: Dental Abscess (ED), Dental Caries (ED), Toothache (ED) Additional Instructions: Swished with ice water. Keep dentist on Thursday. Complete antibiotic prescription in full. Take-home pain medications as directed. Use Zofran for nausea. Return immediately for any new, worsening, or concerning symptoms. Prescriptions: Amoxic-Pot Clav 875-125Mg [Augmentin 875-125] 1 tab PO Q12HR #20 tablet Referrals: Solange Tong MD [Primary Care Provider] - 1-2 days Time of Disposition: 21:00
[2017-03-02] MEDS ORDERED: ONDANSETRON 4 MG ODT STARTER PACK 2 TAB BTL PO STA (21:00)
== END 2017-03-02 21:41 | disposition home or self-care (01) ==
LOC: EC 19:11
DX: S02.5XXA Fracture of tooth (traumatic), initial encounter for closed fracture (principal); K04.7 Periapical abscess without sinus; R11.2 Nausea with vomiting, unspecified; R50.9 Fever, unspecified; R51 Headache; M06.9 Rheumatoid arthritis, unspecified; F41.0 Panic disorder [episodic paroxysmal anxiety]; X58.XXXA Exposure to other specified factors, initial encounter; Z79.899 Other long term (current) drug therapy
CPT/HCPCS: 99282; 96372 ×2; J0561; J1170; S0119

== ENCOUNTER → 2017-03-10 | Outpatient (CLI) | payer OTHER ==
--- NOTE | 2017-03-10 10:21 | XR ---
EXAMINATION TYPE: XR lumbar spine 2 or 3V , 3 VIEWS DATE OF EXAM ORDERED: 03/10/2017 HISTORY: M51.36 deg of lumbar. COMPARISON: Previous study dated 12/30/2016. FINDINGS: There has been an interpedicular fusion at L4-5 and L5-S1. Its spacing material was placed. There is a mild dextroscoliosis. Vertebral body height and alignment are maintained. There is mild hypertrophic spondylosis at L2-3. T here is minimal wedging of the L1 vertebral body, likely developmental.. IMPRESSION: 1. STATUS POST INTERPEDICULAR FUSION L4 TO S1. 2. MILD DEGENERATIVE CHANGE.
== END | disposition home or self-care (01) ==
LOC: RADXRMAIN 09:52
PROVIDERS: ATTEND Neurological Surgery
DX: M47.816 Spondylosis without myelopathy or radiculopathy, lumbar region (principal); Z98.1 Arthrodesis status
CPT/HCPCS: 72100

== ENCOUNTER → 2017-03-30 | Outpatient (CLI) | payer OTHER ==
[2017-03-30 11:39] LABS: ALT 47 U/L (21-72); AST 42 U/L (17-59); Blood Urea Nitrogen 13 mg/dL (9-20); C Reactive Protein 10.9 mg/L (<10.0); Non-African American GFR(MDRD) >60 (>60 ml/min/1.73 sqM); Uric Acid 9.1 mg/dL (3.5-8.5)
[2017-03-30 12:03] LABS: Basophils % (A) 1 %; CH 30.5; CHCM 35.7; Eosinophils # (A) 0.1 k/uL (0-0.7); Eosinophils % (A) 2 %; HCT 45.7 % (39.0-53.0); HDW 3.11; HGB 15.2 gm/dL (13.0-17.5); Luc # (Auto) 0.13; Luc % (Auto) 2; Lymphocytes # (A) 1.6 k/uL (1.0-4.8); Lymphocytes % (A) 26 %; MCH 28.5 pg (25.0-35.0); MCHC 33.1 g/dL (31.0-37.0); Mean Platelet Volume 8.2; Monocytes # (A) 0.5 k/uL (0-1.0); Monocytes % (A) 8 %; Neutrophils # (A) 3.9 k/uL (1.3-7.7); Neutrophils % (A) 62 %; RBC 5.32 m/uL (4.30-5.90); RDW 14.7 % (11.5-15.5); WBC 6.3 k/uL (3.8-10.6); WBC (Perox) 6.45
== END | disposition home or self-care (01) ==
LOC: LABWHC1 10:55
PROVIDERS: ATTEND Internal Medicine Rheumatology
DX: E66.09 Other obesity due to excess calories (principal); M06.09 Rheumatoid arthritis without rheumatoid factor, multiple sites; M15.0 Primary generalized (osteo)arthritis; M47.816 Spondylosis without myelopathy or radiculopathy, lumbar region; M79.7 Fibromyalgia; Z79.52 Long term (current) use of systemic steroids; Z79.899 Other long term (current) drug therapy
CPT/HCPCS: 36415; 82040; 82565; 84450; 84460; 84520; 84550; 85025; 86140

== ENCOUNTER → 2017-04-09 | Outpatient (CLI) | payer OTHER ==
--- NOTE | 2017-04-09 23:07 | MR ---
EXAMINATION TYPE: MR cervical spine wo con DATE OF EXAM: 04/09/2017 COMPARISON: NONE HISTORY: Spondylosis w/ radiculopathy, Neck pain x2 months TECHNIQUE: Multiplanar, multisequence images of the cervical spine were acquired. The cervical vertebra have normal spacing and alignment. Posterior elements are intact. Brainstem is intact. Cervical spinal cord has normal signal pattern. There is no edema. I see no bony destructive process. There is no evidence of paraspinal mass. IMPRESSION: Normal MR scan of the cervical spine.
== END | disposition home or self-care (01) ==
LOC: RADMRIMAIN 20:17
PROVIDERS: ATTEND Neurological Surgery
DX: M47.22 Other spondylosis with radiculopathy, cervical region (principal)
CPT/HCPCS: 72141

== ENCOUNTER → 2017-06-03 | Outpatient (CLI) | payer OTHER ==
--- NOTE | 2017-06-03 07:22 | US ---
EXAMINATION TYPE: US abdomen complete DATE OF EXAM: 06/03/2017 COMPARISON: NONE CLINICAL HISTORY: R76.8 HEP C. EXAM MEASUREMENTS: Liver Length: 16.1 cm Gallbladder Wall: 0.2 cm CBD: 0.5 cm Spleen: 12.8 cm Right Kidney: 12.4 x 4.4 x 5.1 cm Left Kidney: 12.7 x 4.7 x 6.7 cm Pancreas: not well visualized Liver: difficult to penetrate Gallbladder: No stones seen Evidence for sonographic Siegel's sign: No CBD: wnl Spleen: wnl Right Kidney: No hydronephrosis or masses seen Left Kidney: No hydronephrosis or masses seen Upper IVC: wnl Abd Aorta: wnl The liver is heterogenous and hyperechoic, limiting evaluation for hepatic masses The intrahepatic po rtion of the IVC and proximal abdominal aorta are within normal limits. There is no evidence of chol elithiasis. Common bile duct is unremarkable. The pancreas is not well visualized. The spleen is u nremarkable. Kidneys are symmetric and free of hydronephrosis. No renal lesions are seen. IMPRESSION: 1. Coarsened and hyperechoic hepatic echotexture compatible with the patient's known history of under lying hepatocellular disease. No sonographic focal hepatic masses. MRI could also be utilized for rebecca veillance. 2. Mildly prominent size of the spleen that does not yet meet criteria for splenomegaly.
== END | disposition home or self-care (01) ==
LOC: RADUSWWP 06:49
PROVIDERS: ATTEND Family Medicine
DX: R76.8 Other specified abnormal immunological findings in serum (principal)
CPT/HCPCS: 76700

== ENCOUNTER 2017-09-25 05:24 | Emergency (ER) | payer OTHER ==
[2017-09-25] MEDS ORDERED: MORPHINE SULFATE 4 MG/ML SYRINGE IV STA (05:50)
[2017-09-25] MEDS ORDERED: ONDANSETRON 4 MG/2 ML VIAL IVP STA (05:50)
[2017-09-25] MEDS ORDERED: SODIUM CHLORIDE 0.9% 1,000 ML IV STA ×2 (05:50)
--- NOTE | 2017-09-25 05:55 | ED ---
Abdominal Pain HPI - General Source: patient Mode of arrival: ambulatory Limitations: no limitations <Wilma Aguilar - Last Filed: 09/25/17 07:40> <Duke Wilkinson - Last Filed: 09/25/17 08:53> - General Chief Complaint: Abdominal Pain Stated Complaint: flank pain Time Seen by Provider: 09/25/17 05:46 - History of Present Illness Initial Comments: 31 years old male presents with excruciating pain in the left upper quadrant area and the left flank area he said pain been there for about 5 days now he denies any trauma he said it started 5 days ago but got worse over the last 2 days he does have a history of hypertension and rheumatoid arthritis and hepatitis C. Been nauseous denies any diarrhea or vomiting denies any fever or chills. No Frequency Urgency Dysuria No Symptoms of TIA or CVA (Wilma Aguilar) - Related Data Home Medications Medication Instructions Recorded Confirmed Hydroxychloroquine Sulfate 200 mg PO DAILY 08/13/16 09/25/17 [Plaquenil] Allopurinol [Zyloprim] 100 mg PO DAILY 10/27/16 09/25/17 Colchicine 0.6 mg PO DAILY 12/30/16 09/25/17 Meloxicam [Mobic] 15 mg PO DAILY 12/30/16 09/25/17 Amitriptyline HCl [Elavil] 75 mg PO HS 08/16/17 09/25/17 Baclofen [Lioresal] 10 mg PO Q8H 08/16/17 09/25/17 Gabapentin 800 mg PO Q8H 08/16/17 09/25/17 Morphine Sulfate Ir [Msir] 15 mg PO QID PRN 08/16/17 09/25/17 Previous Rx's Medication Instructions Recorded Dicyclomine [Bentyl] 20 mg PO QID #15 tablet 09/25/17 Allergies Allergy/AdvReac Type Severity Reaction Status Date / Time prednisone Allergy Rash/Hives Verified 09/25/17 08:14 Review of Systems ROS Other: All systems not noted in ROS Statement are negative. <Wilma Aguilar - Last Filed: 09/25/17 07:40> ROS Other: All systems not noted in ROS Statement are negative. <Duke Wilkinson - Last Filed: 09/25/17 08:53> ROS Statement: Those systems with pertinent positive or pertinent negative responses have been documented in the HPI. Past Medical History Past Medical History: Hypertension, Rheumatoid Arthritis (RA) Additional Past Medical History / Comment(s): hepatitis C from IV drug abuse. Hx of severe dental caries. History of gout attack, DDD, spinal stenosis History of Any Multi-Drug Resistant Organisms: None Reported Past Surgical History: Back Surgery, Orthopedic Surgery Additional Past Surgical History / Comment(s): right ankle. back fusion with cage Lumbar X3 Past Anesthesia/Blood Transfusion Reactions: No Reported Reaction Past Psychological History: Panic Disorder Smoking Status: Never smoker Past Alcohol Use History: None Reported Past Drug Use History: None Reported <Wilma Aguilar - Last Filed: 09/25/17 07:40> General Exam Limitations: no limitations <Wilma Aguilar - Last Filed: 09/25/17 07:40> <Duke Wilkinson - Last Filed: 09/25/17 08:53> - General Exam Comments Initial Comments: General: The patient is awake and alert, in via distress pain is 10 over 10 in the left upper quadrant area and the left flank area Skin: Skin is warm and dry and no rashes or lesions are noted. Eye: Pupils are equal, round and reactive to light, extra-ocular movements are intact; there is normal conjunctiva bilaterally. Ears, nose, mouth and throat: There are moist mucous membranes and no oral lesions. Neck: The neck is supple, there is no tenderness or JVD. Cardiovascular: There is a regular rate and rhythm. No murmur, rub or gallop is appreciated. Respiratory: To auscultation bilateral, no wheezing no rhonchi no distress respiratory panda noticed Gastrointestinal: Tender over the left upper quadrant area and the left flank area Back: There is no tenderness to palpation in the midline. There is no obvious deformity. Musculoskeletal: Normal ROM, no tenderness, There is no pedal edema. There is no calf tenderness or swelling. No cords were appreciated. Neurological: CN II-XII intact, Cranial nerves III through XII are intact. There are no obvious motor or sensory deficits. Coordination appears grossly intact. Speech is normal. Psychiatric: Cooperative, appropriate mood & affect, normal judgment. (Wilma Aguilar) Course <Wilma Aguilar - Last Filed: 09/25/17 07:40> <Duke Wilkinson - Last Filed: 09/25/17 08:53> Vital Signs 09/25/17 09/25/17 09/25/17 05:27 06:32 07:00 Temperature 98.7 F 97.9 F 97.7 F Pulse Rate 108 H 77 69 Respiratory 20 16 20 Rate Blood Pressure 205/127 147/86 151/83 O2 Sat by Pulse 99 97 97 Oximetry Patient is reassessed at term 7:30, his CBC, compressive metabolic panel, creatinine, urinalysis are within normal range acute series of abdomen are also unremarkable no free air under the diaphragm but unfortunately patient is still a lot of pain considering that I have ordered CT of the abdomen and pelvis and Dr. Duke Wilkinson will follow-upon that (Wilma Aguilar) Medical Decision Making - Lab Data Result diagrams: 09/25/17 05:54 09/25/17 05:54 <Wilma Aguilar - Last Filed: 09/25/17 07:40> - Lab Data Result diagrams: 09/25/17 05:54 09/25/17 05:54 - Radiology Data Radiology results: report reviewed (Computed tomography scan of the abdomen and pelvis shows mild. Pancreatic fat stranding that is nonspecific. Small bowel feces sign scattered could be related to stasis or chronic malabsorption.) <Duke Wilkinson - Last Filed: 09/25/17 08:53> - Medical Decision Making Patient reevaluated and resting comfortably in bed. Patient states he has had some symptoms over the past couple of weeks. Patient has had intermittent diarrhea. Mild tenderness left upper abdomen. Patient updated on results and need for follow-up. (Duke Wilkinson) - Lab Data Lab Results 09/25/17 09/25/17 09/25/17 Range/Units 05:54 05:54 05:54 WBC 8.9 (3.8-10.6) k/uL RBC 5.45 (4.30-5.90) m/uL Hgb 15.6 (13.0-17.5) gm/dL Hct 43.4 (39.0-53.0) % MCV 79.7 L (80.0-100.0) fL MCH 28.6 (25.0-35.0) pg MCHC 35.9 (31.0-37.0) g/dL RDW 13.6 (11.5-15.5) % Plt Count 245 (150-450) k/uL Neutrophils % 60 % Lymphocytes % 30 % Monocytes % 5 % Eosinophils % 1 % Basophils % 0 % Neutrophils # 5.3 (1.3-7.7) k/uL Lymphocytes # 2.7 (1.0-4.8) k/uL Monocytes # 0.5 (0-1.0) k/uL Eosinophils # 0.1 (0-0.7) k/uL Basophils # 0.0 (0-0.2) k/uL Hyperchromasia Slight Poikilocytosis Slight Sodium 143 (137-145) mmol/L Potassium 3.6 (3.5-5.1) mmol/L Chloride 100 (98-107) mmol/L Carbon Dioxide 32 H (22-30) mmol/L Anion Gap 11 mmol/L BUN 14 (9-20) mg/dL Creatinine 0.80 (0.66-1.25) mg/dL Est GFR (CKD-EPI)AfAm >90 (>60 ml/min/1.73 sqM) Est GFR (CKD-EPI)NonAf >90 (>60 ml/min/1.73 sqM) Glucose 101 H (74-99) mg/dL Calcium 9.8 (8.4-10.2) mg/dL Total Bilirubin 1.1 (0.2-1.3) mg/dL AST 27 (17-59) U/L ALT 34 (21-72) U/L Alkaline Phosphatase 63 (38-126) U/L Total Protein 8.2 (6.3-8.2) g/dL Albumin 4.9 (3.5-5.0) g/dL Amylase 55 (30-110) U/L Lipase 95 (23-300) U/L Urine Color Light Yellow Urine Appearance Clear (Clear) Urine pH 6.0 (5.0-8.0) Ur Specific [place] 1.011 (1.001-1.035) Urine Protein Negative (Negative) Urine Glucose (UA) Negative (Negative) Urine Ketones Negative (Negative) Urine Blood Negative (Negative) Urine Nitrite Negative (Negative) Urine Bilirubin Negative (Negative) Urine Urobilinogen <2.0 (<2.0) mg/dL Ur Leukocyte Esterase Negative (Negative) Disposition <Wilma Aguilar - Last Filed: 03/16/18 07:40> Time of Disposition: 08:53 <Duke Wilkinson - Last Filed: 09/25/17 08:53> Clinical Impression: Abdominal pain Disposition: HOME SELF-CARE Condition: Stable Instructions: Abdominal Pain (ED) Additional Instructions: Please follow-up with your DrDev in the next day or 2 for recheck. Return for increased pain, fever, vomiting, worsening or changing symptoms or other concerns. If symptoms continue consider EGD/scope Prescriptions: Dicyclomine [Bentyl] 20 mg PO QID #15 tablet Referrals: Solange Tong MD [Primary Care Provider] - 1-2 days
[2017-09-25 06:00] LABS: Appearance,Urine Clear (Clear); Basophils % (A) 0 %; Bilirubin,Urine Negative (Negative); Blood,Urine Negative (Negative); Color,Urine Light Yellow; Eosinophils # (A) 0.1 k/uL (0-0.7); Eosinophils % (A) 1 %; Glucose,Urine (UA) Negative (Negative); HCT 43.4 % (39.0-53.0); HGB 15.6 gm/dL (13.0-17.5); Hyperchromasia Slight; Ketones,Urine Negative (Negative); Leukocyte Esterase,Urine Negative (Negative); Lymphocytes # (A) 2.7 k/uL (1.0-4.8); Lymphocytes % (A) 30 %; MCH 28.6 pg (25.0-35.0); MCHC 35.9 g/dL (31.0-37.0); MCV 79.7 fL (80.0-100.0); Mean Platelet Volume 7.8; Monocytes # (A) 0.5 k/uL (0-1.0); Monocytes % (A) 5 %; Neutrophils # (A) 5.3 k/uL (1.3-7.7); Neutrophils % (A) 60 %; Nitrite,Urine Negative (Negative); Platelet Count 245 k/uL (150-450); Poikilocytosis Slight; Protein,Urine Negative (Negative); RBC 5.45 m/uL (4.30-5.90); RDW 13.6 % (11.5-15.5); Specific Gravity,Urine 1.011 (1.001-1.035); Urobilinogen,Urine <2.0 mg/dL (<2.0); WBC 8.9 k/uL (3.8-10.6)
[2017-09-25 06:14] LABS: ALT 34 U/L (21-72); AST 27 U/L (17-59); Albumin 4.9 g/dL (3.5-5.0); Alkaline Phosphatase 63 U/L (38-126); Amylase 55 U/L (30-110); Anion Gap 11 mmol/L; Blood Urea Nitrogen 14 mg/dL (9-20); Calcium 9.8 mg/dL (8.4-10.2); Carbon Dioxide 32 mmol/L (22-30); Chloride 100 mmol/L (98-107); Glucose 101 mg/dL (74-99); Lipase 95 U/L (23-300); Potassium 3.6 mmol/L (3.5-5.1); Sodium 143 mmol/L (137-145); Total Bilirubin 1.1 mg/dL (0.2-1.3); Total Protein 8.2 g/dL (6.3-8.2)
--- NOTE | 2017-09-25 06:55 | XR ---
PROCEDURE: FILM ACUTE ABDOMEN SERIES W/ CXR HISTORY: 31-year-old male with left upper quadrant pain. COMPARISON: Chest radiographs 08/16/2017 and abdominal radiographs 07/02/2016 TECHNIQUE: Frontal view of the chest and frontal upright and supine views of the abdomen were obtained. FINDINGS: Cardiomediastinal silhouette is stable. The lungs are clear without evidence of focal consolidation, pleural effusion, or pneumothorax. There is no evidence of free air under the diaphragm. Nonobstructive bowel gas pattern. Interval lumbosacral fusion without evidence of acute hardware complication. IMPRESSION: Nonobstructive bowel gas pattern.
[2017-09-25] MEDS ORDERED: RX INFO: IV CONTRAST WAS GIVEN 1 EACH MISC MISCELLANE PRN (07:39)
[2017-09-25] MEDS ORDERED: MORPHINE SULFATE 4 MG/ML SYRINGE IVP PRN (07:39)
--- NOTE | 2017-09-25 08:30 | CT ---
EXAMINATION TYPE: CT abdomen pelvis w con DATE OF EXAM: 09/25/2017 COMPARISON: NONE HISTORY: Left sided abdominal/flank pain CT DLP: 1929 mGycm Automated exposure control for dose reduction was used. TECHNIQUE: Helical acquisition of images was performed from the lung bases through the pelvis. CONTRAST: Performed without Oral Contrast and with IV Contrast, patient injected with 100 ml mL of Omnipaque 30 0. FINDINGS: LUNG BASES: Linear left basilar pleural-parenchymal scarring is noted. LIVER/GB: Liver is unremarkable in enhancement with no evidence of cholelithiasis. PANCREAS: There is a very subtle and very mild peripancreatic fat stranding around the celiac access and SMA and between the pancreatic head and duodenum which is nonspecific but could relate to mild pa ncreatitis. Pancreatic body enhances homogeneously without ductal dilatation or peripancreatic fluid collection. SPLEEN: No significant abnormality is seen. ADRENALS: No significant abnormality is seen. KIDNEYS: Kidneys enhance symmetrically without hydronephrosis. No gross evidence of nephrolithiasis. No ureteral or urinary bladder calculi. FREE AIR: No free air is visualized. REPRODUCTIVE ORGANS: No significant abnormality is seen URINARY BLADDER: No urinary bladder calculi. ADENOPATHY: No greater than 1 cm short axis lymph nodes within the abdomen or pelvis. OSSEOUS STRUCTURES: Postoperative changes of the lumbar spine are noted. No malalignment. BOWEL: No inflammatory changes or dilation. Few nondilated small bowel scattered throughout the abdo men and low pelvis demonstrate small bowel feces sign indicative of either stasis or malabsorption. N o evidence of obstruction. Appendix is within normal limits without periappendiceal fat stranding. IMPRESSION: 1. VERY MILD PERIPANCREATIC FAT STRANDING AROUND THE CELIAC AXIS AND BETWEEN THE PANCREATIC HEAD AND DUODENUM ARE NONSPECIFIC BUT COULD RELATE TO MILD UNCOMPLICATED PANCREATITIS. CORRELATE WITH SERUM AM YLASE AND LIPASE. 2. NO CT EVIDENCE OF OBSTRUCTIVE UROPATHY OR APPENDICITIS. NO ACUTE DIVERTICULITIS. 3. NO EVIDENCE OF BOWEL OBSTRUCTION. SMALL BOWEL FECES SIGN SCATTERED THROUGHOUT A FEW LOOPS OF SMALL BOWEL COULD RELATE TO STASIS OR CHRONIC MALABSORPTION.
[2017-09-25] MEDS ORDERED: DICYCLOMINE 20 MG TAB PO STA (08:50)
[2017-09-25 08:58] VITALS: BP 143/83; PULSE 67; RESP 18; TEMP 98
== END 2017-09-25 09:03 | disposition home or self-care (01) ==
LOC: EC 05:24
DX: R10.12 Left upper quadrant pain (principal); R11.0 Nausea; R19.7 Diarrhea, unspecified; I10 Essential (primary) hypertension; M06.9 Rheumatoid arthritis, unspecified; M10.9 Gout, unspecified; F41.0 Panic disorder [episodic paroxysmal anxiety]; Z79.1 Long term (current) use of non-steroidal anti-inflammatories (NSAID); Z79.899 Other long term (current) drug therapy; Z88.8 Allergy status to other drugs, medicaments and biological substances; Z87.39 Personal history of other diseases of the musculoskeletal system and connective tissue
CPT/HCPCS: 36415; 80053; 82150; 83690; 85025; 81003; 74022; 74177; 99284; 96374; 96375; 96376; 96361 ×3; J2270; J2405; Q9967

== ENCOUNTER 2017-09-27 01:27 | Emergency (ER) | payer OTHER ==
[2017-09-27] MEDS ORDERED: SODIUM CHLORIDE 0.9% 1,000 ML IV STA (01:38)
[2017-09-27 02:07] LABS: Appearance,Urine Clear (Clear); Bilirubin,Urine Negative (Negative); Blood,Urine Negative (Negative); Color,Urine Colorless; Glucose,Urine (UA) Negative (Negative); Ketones,Urine Negative (Negative); Leukocyte Esterase,Urine Negative (Negative); Nitrite,Urine Negative (Negative); Protein,Urine Negative (Negative); Specific Gravity,Urine 1.002 (1.001-1.035); Urobilinogen,Urine <2.0 mg/dL (<2.0)
--- NOTE | 2017-09-27 02:07 | ED ---
General Adult HPI - General Chief complaint: Abdominal Pain Stated complaint: Bilat Flank Pain Time Seen by Provider: 09/27/17 01:37 Source: patient, RN notes reviewed Mode of arrival: ambulatory Limitations: no limitations - History of Present Illness Initial comments: 31-year-old male presents for bilateral sided abdominal pain. He states he's had this since Thursday. He was seen here. Patient states that the pain just keeps getting worse. He does suffer from opiate-induced constipation and states he did give himself an enema today and had a very small output. He states that he's never had a feeling this before. He admits to nausea without vomiting. There were concerned due to the continued pain so he thought that he should be seen.Patient denies any recent fever, chills, shortness of breath, chest pain, back pain, nausea vomiting, numbness or tingling, dysuria or hematuria, constipation or diarrhea, headaches or visual changes, or any other current symptoms. - Related Data Home Medications Medication Instructions Recorded Confirmed Hydroxychloroquine Sulfate 200 mg PO DAILY 08/13/16 09/25/17 [Plaquenil] Allopurinol [Zyloprim] 100 mg PO DAILY 10/27/16 09/25/17 Colchicine 0.6 mg PO DAILY 12/30/16 09/25/17 Meloxicam [Mobic] 15 mg PO DAILY 12/30/16 09/25/17 Amitriptyline HCl [Elavil] 75 mg PO HS 08/16/17 09/25/17 Baclofen [Lioresal] 10 mg PO Q8H 08/16/17 09/25/17 Gabapentin 800 mg PO Q8H 08/16/17 09/25/17 Morphine Sulfate Ir [Msir] 15 mg PO QID PRN 08/16/17 09/25/17 Previous Rx's Medication Instructions Recorded Dicyclomine [Bentyl] 20 mg PO QID #15 tablet 09/25/17 Allergies Allergy/AdvReac Type Severity Reaction Status Date / Time prednisone Allergy Rash/Hives Verified 09/25/17 08:14 Review of Systems ROS Statement: Those systems with pertinent positive or pertinent negative responses have been documented in the HPI. ROS Other: All systems not noted in ROS Statement are negative. Past Medical History Past Medical History: Hypertension, Rheumatoid Arthritis (RA) Additional Past Medical History / Comment(s): hepatitis C from IV drug abuse. Hx of severe dental caries. History of gout attack, DDD, spinal stenosis History of Any Multi-Drug Resistant Organisms: None Reported Past Surgical History: Back Surgery, Orthopedic Surgery Additional Past Surgical History / Comment(s): right ankle. back fusion with cage Lumbar X3 Past Anesthesia/Blood Transfusion Reactions: No Reported Reaction Past Psychological History: Panic Disorder Smoking Status: Never smoker Past Alcohol Use History: None Reported Past Drug Use History: None Reported General Exam - General Exam Comments Initial Comments: General: The patient is awake and alert, in no distress, and does not appear acutely ill. Eye: Pupils are equal, round and reactive to light, extra-ocular movements are intact; there is normal conjunctiva bilaterally. No signs of icterus. Ears, nose, mouth and throat: There are moist mucous membranes and no oral lesions. Neck: The neck is supple, there is no tenderness. Cardiovascular: There is a regular rate and rhythm. No murmur, rub or gallop is appreciated. Respiratory: Lungs are clear to auscultation, respirations are non-labored, breath sounds are equal. No wheezes, stridor, rales, or rhonchi. Gastrointestinal: Soft, non-distended, bilateral minimal upper quadrant tenderness of the abdomen without masses or organomegaly noted. There is no rebound or guarding present. No CVA tenderness. Bowel sounds are unremarkable. Back: There is no tenderness to palpation in the midline. There is no obvious deformity. No rashes noted. Musculoskeletal: Normal ROM, no tenderness, There is no pedal edema. There is no calf tenderness or swelling. Sensation intact. Pulses equal bilaterally 2+. Neurological: CN II-XII intact, There are no obvious motor or sensory deficits. Coordination appears grossly intact. Speech is normal. Skin: Skin is warm and dry and no rashes or lesions are noted. Psychiatric: Cooperative, appropriate mood & affect, normal judgment. Limitations: no limitations Course Vital Signs 09/27/17 09/27/17 01:58 03:41 Temperature 98 F 97.7 F Pulse Rate 115 H 77 Respiratory 20 16 Rate Blood Pressure 212/120 158/90 O2 Sat by Pulse 97 99 Oximetry Medical Decision Making - Medical Decision Making 31-year-old male presents with abdominal pain. At this time patient's lab work is been reviewed. At this time vital signs have been examined. We discussed different causes for his abdominal pain following up with his doctor and return parameters. At this time we will give him magnesium citrate to help with his constipation issues. We discussed follow-up we discussed return parameters all questions. He stated that he understood he is given this plan. All questions have been answered. This time patient will be discharged home. - Lab Data Result diagrams: 09/27/17 01:48 09/27/17 01:48 Lab Results 09/27/17 09/27/17 09/27/17 Range/Units 01:48 01:48 01:48 WBC 8.3 (3.8-10.6) k/uL RBC 5.25 (4.30-5.90) m/uL Hgb 14.6 (13.0-17.5) gm/dL Hct 42.5 (39.0-53.0) % MCV 81.0 (80.0-100.0) fL MCH 27.8 (25.0-35.0) pg MCHC 34.4 (31.0-37.0) g/dL RDW 13.8 (11.5-15.5) % Plt Count 242 (150-450) k/uL Neutrophils % 62 % Lymphocytes % 28 % Monocytes % 7 % Eosinophils % 1 % Basophils % 0 % Neutrophils # 5.1 (1.3-7.7) k/uL Lymphocytes # 2.4 (1.0-4.8) k/uL Monocytes # 0.6 (0-1.0) k/uL Eosinophils # 0.1 (0-0.7) k/uL Basophils # 0.0 (0-0.2) k/uL Sodium 142 (137-145) mmol/L Potassium 3.7 (3.5-5.1) mmol/L Chloride 101 (98-107) mmol/L Carbon Dioxide 28 (22-30) mmol/L Anion Gap 13 mmol/L BUN 9 (9-20) mg/dL Creatinine 0.76 (0.66-1.25) mg/dL Est GFR (CKD-EPI)AfAm >90 (>60 ml/min/1.73 sqM) Est GFR (CKD-EPI)NonAf >90 (>60 ml/min/1.73 sqM) Glucose 104 H (74-99) mg/dL Calcium 9.7 (8.4-10.2) mg/dL Total Bilirubin 1.5 H (0.2-1.3) mg/dL AST 25 (17-59) U/L ALT 38 (21-72) U/L Alkaline Phosphatase 66 (38-126) U/L Total Protein 7.9 (6.3-8.2) g/dL Albumin 4.6 (3.5-5.0) g/dL Amylase 50 (30-110) U/L Lipase 72 (23-300) U/L Urine Color Colorless Urine Appearance Clear (Clear) Urine pH 7.0 (5.0-8.0) Ur Specific [place] 1.002 (1.001-1.035) Urine Protein Negative (Negative) Urine Glucose (UA) Negative (Negative) Urine Ketones Negative (Negative) Urine Blood Negative (Negative) Urine Nitrite Negative (Negative) Urine Bilirubin Negative (Negative) Urine Urobilinogen <2.0 (<2.0) mg/dL Ur Leukocyte Esterase Negative (Negative) Disposition Clinical Impression: Abdominal pain Disposition: HOME SELF-CARE Condition: Stable Instructions: Abdominal Pain (ED) Additional Instructions: Please use medication as discussed. Please follow up with family doctor if symptoms have not improved over the next two days. Please return to the emergency room if your symptoms increase or worsen or for any other concerns. Referrals: Solange Tong MD [Primary Care Provider] - 1-2 days Time of Disposition: 04:04
[2017-09-27 02:08] LABS: Basophils % (A) 0 %; Eosinophils # (A) 0.1 k/uL (0-0.7); Eosinophils % (A) 1 %; HCT 42.5 % (39.0-53.0); HGB 14.6 gm/dL (13.0-17.5); Lymphocytes # (A) 2.4 k/uL (1.0-4.8); Lymphocytes % (A) 28 %; MCH 27.8 pg (25.0-35.0); MCHC 34.4 g/dL (31.0-37.0); Mean Platelet Volume 8.4; Monocytes # (A) 0.6 k/uL (0-1.0); Monocytes % (A) 7 %; Neutrophils # (A) 5.1 k/uL (1.3-7.7); Neutrophils % (A) 62 %; Platelet Count 242 k/uL (150-450); RBC 5.25 m/uL (4.30-5.90); RDW 13.8 % (11.5-15.5); WBC 8.3 k/uL (3.8-10.6)
[2017-09-27 02:15] LABS: ALT 38 U/L (21-72); AST 25 U/L (17-59); Albumin 4.6 g/dL (3.5-5.0); Alkaline Phosphatase 66 U/L (38-126); Amylase 50 U/L (30-110); Anion Gap 13 mmol/L; Blood Urea Nitrogen 9 mg/dL (9-20); Calcium 9.7 mg/dL (8.4-10.2); Carbon Dioxide 28 mmol/L (22-30); Chloride 101 mmol/L (98-107); Glucose 104 mg/dL (74-99); Lipase 72 U/L (23-300); Potassium 3.7 mmol/L (3.5-5.1); Sodium 142 mmol/L (137-145); Total Bilirubin 1.5 mg/dL (0.2-1.3); Total Protein 7.9 g/dL (6.3-8.2)
[2017-09-27 03:42] VITALS: BP 158/90; PULSE 77; RESP 16; TEMP 97.7
[2017-09-27] MEDS ORDERED: MORPHINE SULFATE 4 MG/ML SYRINGE IV STA (04:03)
[2017-09-27] MEDS ORDERED: MAGNESIUM CITRATE 296 ML BOTTLE PO ONE (04:03)
--- NOTE | 2017-09-27 04:44 | XR ---
EXAMINATION TYPE: Abdomen 3 views DATE OF EXAM: 09/27/2017 COMPARISON: NONE HISTORY: Left upper quadrant pain TECHNIQUE: 3 views FINDINGS: Bowel gas pattern is normal. There is no sign of intestinal obstruction or pneumoperitoneum. Fecal pa ttern is normal. There is lumbar spine fusion surgery. There are no pathologic calcifications over th e kidneys. Lung bases are clear. CONCLUSION: Nonacute abdomen.
== END 2017-09-27 04:33 | disposition home or self-care (01) ==
LOC: EC 01:27
DX: R10.9 Unspecified abdominal pain (principal); K59.00 Constipation, unspecified; M06.9 Rheumatoid arthritis, unspecified; M48.00 Spinal stenosis, site unspecified; M10.9 Gout, unspecified; Z79.1 Long term (current) use of non-steroidal anti-inflammatories (NSAID); Z79.899 Other long term (current) drug therapy; Z88.8 Allergy status to other drugs, medicaments and biological substances
CPT/HCPCS: 36415; 80053; 82150; 83690; 85025; 81003; 74019; 99284; 96374; 96361 ×2; J2270

== ENCOUNTER → 2017-11-23 | Outpatient (CLI) | payer OTHER ==
--- NOTE | 2017-11-23 16:00 | XR ---
Lumbar spine HISTORY: Low back pain 3 views of the lumbar spine Comparison to prior exam 03/10/2017 Patient shows posterior fusion and intervertebral disc space material placement at L5-S1, L4-5 as on prior. Alignment is stable. Spondylosis is present. Disc spaces are stable. Transpedicular screws cou rse across the anterior cortex at L5 and S1 as on prior. Vertebral body height is maintained. IMPRESSION: Stable findings.
== END ==
LOC: RADXRMAIN 12:27
PROVIDERS: ATTEND Neurological Surgery
DX: M47.22 Other spondylosis with radiculopathy, cervical region (principal)
CPT/HCPCS: 72100

== ENCOUNTER → 2017-11-26 | Outpatient (CLI) | payer OTHER ==
--- NOTE | 2017-11-26 20:50 | MR ---
EXAMINATION TYPE: MR cervical spine wo con DATE OF EXAM: 11/26/2017 COMPARISON: 04/09/2017 HISTORY: Neck pain, BiLateral Arm Pain with Limited ROM TECHNIQUE: Multiplanar, multisequence images of the cervical spine were acquired. C2-C3: No evidence for degenerative disc disease. No disc bulge/herniation or protrusion. No Canal stenosis. Foramina are patent bilaterally. C3-C4: No evidence for degenerative disc disease. No disc bulge/herniation or protrusion. No Canal stenosis. Mild hypertrophy of the facets and uncovertebral joints result in bilateral foraminal encro achment.. C4-C5: No evidence for degenerative disc disease. No disc bulge/herniation or protrusion. No Canal stenosis. Hypertrophy of the uncovertebral joints results in mild bilateral foraminal encroachment.. C5-C6: No evidence for degenerative disc disease. No disc bulge/herniation or protrusion. No Canal stenosis. Foramina are patent bilaterally. There is mild hypertrophy of the uncovertebral joints. Mi ld bilateral foraminal encroachment. C6-C7: No evidence for degenerative disc disease. No disc herniation. There is minimal central disc bulging. No Canal stenosis. Foramina are patent bilaterally. C7-T1: No evidence for degenerative disc disease. No disc bulge/herniation or protrusion. No Canal stenosis. Foramina are patent bilaterally. Cervical segments are intact. There is normal alignment. Cervical spinal cord is of normal signal. Craniovertebral junction relationships are within normal limits. IMPRESSION: 1. Mild uncovertebral joint hypertrophy C3-4, C4-5 and C5-C6 results in very mild bilateral foraminal encroachment but no nerve root contact. 2. Minimal central disc bulging.
== END | disposition home or self-care (01) ==
LOC: RADMRIMAIN 19:13
PROVIDERS: ATTEND Neurological Surgery
DX: M50.223 Other cervical disc displacement at C6-C7 level (principal); M53.82 Other specified dorsopathies, cervical region
CPT/HCPCS: 72141

== ENCOUNTER 2017-12-10 23:26 | Emergency (ER) | payer OTHER ==
[2017-12-11] MEDS ORDERED: NITROGLYCERIN OINT 1 INCH/GM PACKET TOPICAL STA (01:26)
[2017-12-11] MEDS ORDERED: SODIUM CHLORIDE 0.9% 1,000 ML IV STA (01:26)
[2017-12-11] MEDS ORDERED: ASPIRIN 81 MG PO STA (01:26)
[2017-12-11 02:01] LABS: Basophils % (A) 0 %; Eosinophils # (A) 0.1 k/uL (0-0.7); Eosinophils % (A) 2 %; HCT 40.7 % (39.0-53.0); HGB 14.5 gm/dL (13.0-17.5); Lymphocytes # (A) 1.4 k/uL (1.0-4.8); Lymphocytes % (A) 25 %; MCH 28.4 pg (25.0-35.0); MCHC 35.5 g/dL (31.0-37.0); MCV 79.8 fL (80.0-100.0); Mean Platelet Volume 7.9; Monocytes # (A) 0.6 k/uL (0-1.0); Monocytes % (A) 11 %; Neutrophils # (A) 3.2 k/uL (1.3-7.7); Neutrophils % (A) 58 %; Platelet Count 177 k/uL (150-450); RDW 13.5 % (11.5-15.5); WBC 5.6 k/uL (3.8-10.6)
--- NOTE | 2017-12-11 02:09 | XR ---
EXAMINATION TYPE: XR chest 2V DATE OF EXAM: 12/11/2017 COMPARISON: NONE HISTORY: Chest pain TECHNIQUE: Frontal and lateral views of the chest are obtained. FINDINGS: Heart and mediastinum are normal. Lungs are clear. Diaphragm is normal. There are chest le ads. Bony thorax is intact. IMPRESSION: Normal chest
[2017-12-11 02:13] LABS: ALT 37 U/L (21-72); AST 40 U/L (17-59); Albumin 4.2 g/dL (3.5-5.0); Alkaline Phosphatase 51 U/L (38-126); Anion Gap 14 mmol/L; Blood Urea Nitrogen 12 mg/dL (9-20); Calcium 8.9 mg/dL (8.4-10.2); Carbon Dioxide 24 mmol/L (22-30); Chloride 103 mmol/L (98-107); Glucose 95 mg/dL (74-99); Magnesium 1.8 mg/dL (1.6-2.3); Potassium 3.4 mmol/L (3.5-5.1); Sodium 141 mmol/L (137-145); Total Bilirubin 1.5 mg/dL (0.2-1.3); Total Protein 7.2 g/dL (6.3-8.2)
[2017-12-11 02:19] LABS: Creatine Kinase 64 U/L (55-170)
[2017-12-11 02:23] LABS: INR 1.2 (<1.2); Partial Thromboplastin Time 25.7 sec (22.0-30.0); Prothrombin Time 11.5 sec (9.0-12.0)
[2017-12-11 02:32] LABS: Creatine Kinase MB 0.3 ng/mL (0.0-2.4); Troponin I <0.012 ng/mL (0.000-0.034)
--- NOTE | 2017-12-11 04:11 | ED ---
Chest Pain HPI - General Chief Complaint: Chest Pain Stated Complaint: Chest pain Time Seen by Provider: 12/11/17 01:16 Source: patient Mode of arrival: ambulatory Limitations: no limitations - History of Present Illness Initial Comments: Before years old gentleman had a chest pain going on for 4 weeks and a chest pain got worse about 36 hours ago he does have a history of hypertension and his he has a history of hepatitis he has been now short winded off-and-on especially when he goes up stairs no chest pain with that he has been coughing no sputum he denies any tobacco use she does have a history of for drug abuse in the remote past. No fever no chills no sputum. No abdominal pain no frequency urgency dysuria - Related Data Home Medications Medication Instructions Recorded Confirmed Hydroxychloroquine Sulfate 200 mg PO DAILY 08/13/16 09/25/17 [Plaquenil] Allopurinol [Zyloprim] 100 mg PO DAILY 10/27/16 09/25/17 Colchicine 0.6 mg PO DAILY 12/30/16 09/25/17 Meloxicam [Mobic] 15 mg PO DAILY 12/30/16 09/25/17 Amitriptyline HCl [Elavil] 75 mg PO HS 08/16/17 09/25/17 Baclofen [Lioresal] 10 mg PO Q8H 08/16/17 09/25/17 Gabapentin 800 mg PO Q8H 08/16/17 09/25/17 Morphine Sulfate Ir [Msir] 15 mg PO QID PRN 08/16/17 09/25/17 Previous Rx's Medication Instructions Recorded Dicyclomine [Bentyl] 20 mg PO QID #15 tablet 09/25/17 Allergies Allergy/AdvReac Type Severity Reaction Status Date / Time prednisone Allergy Rash/Hives Verified 12/11/17 00:17 Review of Systems ROS Statement: Those systems with pertinent positive or pertinent negative responses have been documented in the HPI. ROS Other: All systems not noted in ROS Statement are negative. EKG Findings - EKG Comments: EKG Findings:: KG is normal sinus rhythm ventricular rate 70 CA interval is 134 QRS duration is 96 QT/QTc is 390/421 review of this EKG does not reveal any STEMI or ST depression Past Medical History Past Medical History: Hypertension, Rheumatoid Arthritis (RA) Additional Past Medical History / Comment(s): hepatitis C from IV drug abuse. Hx of severe dental caries. History of gout attack, DDD, spinal stenosis History of Any Multi-Drug Resistant Organisms: None Reported Past Surgical History: Back Surgery, Orthopedic Surgery Additional Past Surgical History / Comment(s): right ankle. back fusion with cage Lumbar X3 Past Anesthesia/Blood Transfusion Reactions: No Reported Reaction Past Psychological History: Panic Disorder Smoking Status: Never smoker Past Alcohol Use History: None Reported Past Drug Use History: None Reported General Exam - General Exam Comments Initial Comments: General: The patient is awake and alert, in no distress, and does not appear acutely ill. Skin: Skin is warm and dry and no rashes or lesions are noted. Eye: Pupils are equal, round and reactive to light, extra-ocular movements are intact; there is normal conjunctiva bilaterally. Ears, nose, mouth and throat: There are moist mucous membranes and no oral lesions. Neck: The neck is supple, there is no tenderness or JVD. Cardiovascular: There is a regular rate and rhythm. No murmur, rub or gallop is appreciated. Respiratory: To auscultation bilateral, no wheezing no rhonchi no distress respiratory panda noticed Gastrointestinal: Soft, non-distended, non-tender abdomen without masses or organomegaly noted. There is no rebound or guarding present. Bowel sounds are unremarkable. Back: There is no tenderness to palpation in the midline. There is no obvious deformity. Musculoskeletal: Normal ROM, no tenderness, There is no pedal edema. There is no calf tenderness or swelling. No cords were appreciated. Neurological: CN II-XII intact, Cranial nerves III through XII are intact. There are no obvious motor or sensory deficits. Coordination appears grossly intact. Speech is normal. Psychiatric: Cooperative, appropriate mood & affect, normal judgment. Limitations: no limitations Course Vital Signs 12/11/17 12/11/17 12/11/17 00:15 01:58 03:47 Temperature 98.6 F Pulse Rate 79 77 83 Respiratory 18 16 16 Rate Blood Pressure 187/107 146/96 154/88 O2 Sat by Pulse 98 97 99 Oximetry Plan reassessment noticed INR, CBC, compressive metabolic panel, compressive metabolic panel, troponin, EKG, chest x-ray are unremarkable. He was offered for a observation admission, he preferred to go home and he promised that he will follow with the cardiology. No chest pain at this point Disposition Clinical Impression: Chest pain Disposition: HOME SELF-CARE Condition: Good Instructions: Chest Pain (ED) Is patient prescribed a controlled substance at d/c from ED?: No Referrals: Solange Tong MD [Primary Care Provider] - 1-2 days Andrei Lopes MD [STAFF PHYSICIAN] - 1-2 days
[2017-12-11 06:24] VITALS: BP 126/76; PULSE 70; RESP 18; TEMP 97.2
== END 2017-12-11 06:23 | disposition home or self-care (01) ==
LOC: EC 23:26
DX: R07.9 Chest pain, unspecified (principal); I10 Essential (primary) hypertension; M06.9 Rheumatoid arthritis, unspecified; M48.00 Spinal stenosis, site unspecified; M10.9 Gout, unspecified; Z79.1 Long term (current) use of non-steroidal anti-inflammatories (NSAID); Z79.899 Other long term (current) drug therapy; Z88.8 Allergy status to other drugs, medicaments and biological substances
CPT/HCPCS: 36415; 71046; 80053; 82550; 82553; 83735; 84484; 85025; 85610; 85730; 93005; 96360; 96361; 99285

== ENCOUNTER → 2017-12-28 | Outpatient (CLI) | payer OTHER ==
[2017-12-28 17:36] LABS: Basophils % (A) 0 %; Eosinophils # (A) 0.1 k/uL (0-0.7); Eosinophils % (A) 1 %; HCT 40.9 % (39.0-53.0); HGB 14.5 gm/dL (13.0-17.5); Lymphocytes # (A) 2.2 k/uL (1.0-4.8); Lymphocytes % (A) 25 %; MCH 29.2 pg (25.0-35.0); MCHC 35.5 g/dL (31.0-37.0); MCV 82.2 fL (80.0-100.0); Mean Platelet Volume 7.6; Monocytes # (A) 0.5 k/uL (0-1.0); Monocytes % (A) 6 %; Neutrophils # (A) 5.6 k/uL (1.3-7.7); Neutrophils % (A) 65 %; Platelet Count 223 k/uL (150-450); RBC 4.98 m/uL (4.30-5.90); RDW 14.3 % (11.5-15.5); WBC 8.7 k/uL (3.8-10.6)
[2017-12-28 17:56] LABS: ALT 36 U/L (21-72); AST 35 U/L (17-59); Albumin 4.7 g/dL (3.5-5.0); Blood Urea Nitrogen 20 mg/dL (9-20); C Reactive Protein 14.5 mg/L (<10.0); Uric Acid 7.6 mg/dL (3.5-8.5)
== END | disposition home or self-care (01) ==
LOC: LABWHC1 16:29
PROVIDERS: ATTEND Internal Medicine Rheumatology
DX: E66.09 Other obesity due to excess calories (principal); M06.09 Rheumatoid arthritis without rheumatoid factor, multiple sites; M15.0 Primary generalized (osteo)arthritis; M47.816 Spondylosis without myelopathy or radiculopathy, lumbar region; M79.7 Fibromyalgia; Z79.899 Other long term (current) drug therapy; Z79.52 Long term (current) use of systemic steroids
CPT/HCPCS: 36415; 82040; 82565; 84450; 84460; 84520; 84550; 85025; 86140

== ENCOUNTER → 2018-01-05 | Outpatient (CLI) | payer OTHER ==
--- NOTE | 2018-01-06 06:44 | CT ---
EXAMINATION TYPE: CT lumbar spine wo con DATE OF EXAM: 01/05/2018 6:19 PM COMPARISON: CT lumbar spine October 27, 2016 HISTORY: History of lumbar fusion status post arthrodesis with persistent pain CT DLP: 738 mGycm Automated exposure control for dose reduction was used. Unenhanced CT of the lumbar spine was performed. Bone and soft tissue window settings are submitted as well as coronal and sagittal reconstructions. There is redemonstration of 5 lumbar type vertebra. There is redemonstration of posterior interpedicu lar rods and screws transfixing L4-S1 levels bilaterally. There are redemonstration of metallic disc spacers L4-L5 and L5-S1 levels. Alignment is satisfactory and stable. Vertebral body heights and disc space heights above surgical levels are stable and within normal limits. Small spur superior anterio r L2 endplate is redemonstrated. Axial images at T12-L1, and L1-L2 levels to remain within normal limits. Axial images at L2-L3 level redemonstrate mild broad disc bulge mildly effacing anterior thecal sac o n axial image 36, bilateral neural foramina are felt patent. No significant change from prior. Axial images at L3-L4 level show new mild broad disc bulge with central disc protrusion component eff acing anterior thecal sac on axial image 48, suspect new mild bilateral anterior inferior neural fora fei narrowing. Axial images at L4-L5 and L5-S1 levels are suboptimally evaluated due to streak artifact from metalli c disc spacers. Paraspinal muscle bulk is preserved. IMPRESSION: Postsurgical changes L4-S1 levels with stable and satisfactory alignment, some new degene rative changes L3-L4 level are felt present .
== END | disposition home or self-care (01) ==
LOC: RADCTMAIN 18:01
PROVIDERS: ATTEND Neurological Surgery
DX: M47.816 Spondylosis without myelopathy or radiculopathy, lumbar region (principal); Z98.1 Arthrodesis status
CPT/HCPCS: 72131

== ENCOUNTER 2018-04-05 09:17 | Day surgery (SDC) | payer OTHER ==
[2018-04-02 10:55] VITALS: BMI 33.9
[~2018-04-05 09:17] MED LIST: HEPARIN SODIUM,PORCINE 5,000 UNIT/ML 1 ML VIAL SQ ONE; HYDROmorphone 0.5 MG/0.5 ML SYRINGE IVP PRN; LACTATED RINGERS 1,000 ML IV SCH; LIDOCAINE 1% 20 ML VIAL (10MG/ML) FOR IV START INTRADERMA PRN; ONDANSETRON 4 MG/2 ML VIAL IVP ONE
[2018-04-05] MEDS ORDERED: BUPIVACAIN-EPI 0.5%-1:200,000 30 ML VIAL SQ ONE (10:36)
--- NOTE | 2018-04-05 10:53 | P.GSHP ---
History of Present Illness H&P Date: 04/05/18 Chief Complaint: Right upper quadrant pain This is a 32-year-old male second point upper quadrant pain. Patient presents today for laparoscopic cholestatic. His recent HIDA scan shows an abnormal ejection fraction. Past Medical History Past Medical History: Fibromyalgia, Hypertension, Liver Disease, Osteoarthritis (OA), Rheumatoid Arthritis (RA), Skin Disorder Additional Past Medical History / Comment(s): "hepatitis C antibody". Hx of severe dental caries. chronic gout, DDD, spinal stenosis, constipation from pain meds, eczema, History of Any Multi-Drug Resistant Organisms: None Reported Past Surgical History: Back Surgery, Orthopedic Surgery Additional Past Surgical History / Comment(s): back fusion with cage Lumbar total 3 back surgeries, rt ankle ORIF, Past Anesthesia/Blood Transfusion Reactions: No Reported Reaction Smoking Status: Never smoker - Past Family History Mother Family Medical History: No Reported History Medications and Allergies Home Medications Medication Instructions Recorded Confirmed Type Hydroxychloroquine Sulfate 200 mg PO DAILY 08/13/16 04/05/18 History [Plaquenil] Allopurinol [Zyloprim] 100 mg PO DAILY 10/27/16 04/05/18 History Colchicine 0.6 mg PO DAILY 12/30/16 04/05/18 History Meloxicam [Mobic] 15 mg PO DAILY 12/30/16 04/05/18 History Amitriptyline HCl [Elavil] 75 mg PO HS 08/16/17 04/05/18 History Baclofen [Lioresal] 10 mg PO Q8H 08/16/17 04/05/18 History Gabapentin 800 mg PO Q8H 08/16/17 04/05/18 History Morphine Sulfate Ir [MSIR] 15 mg PO QID PRN 08/16/17 04/05/18 History amLODIPine [Norvasc] 10 mg PO DAILY 04/02/18 04/05/18 History Allergies Allergy/AdvReac Type Severity Reaction Status Date / Time prednisone Allergy Rash/Hives Verified 04/05/18 10:46 Surgical - Exam Vital Signs Temp Pulse Resp BP Pulse Ox 98.2 F 84 16 170/110 99 04/05/18 10:47 04/05/18 10:47 04/05/18 10:47 04/05/18 10:47 04/05/18 10:47 - General well developed - Eyes PERRL - ENT normal pinna - Neck no masses - Respiratory normal expansion - Cardiovascular Rhythm: regular - Abdomen Abdomen: soft, non tender Assessment and Plan Assessment: Right upper quadrant pain Abnormal HIDA scan We'll perform laparoscopic cholecystectomy.
[2018-04-05] MEDS ORDERED: DEXAMETHASONE SOD PHOSPHATE 10 MG/ML 1 ML VIAL IV ONE (10:54)
[2018-04-05] MEDS ORDERED: HYDROmorphone (PF) 1 MG/ML ONE (11:07)
[2018-04-05] MEDS ORDERED: KETOROLAC 30 MG/ML 1 ML VIAL ONE (11:07)
[2018-04-05] MEDS ORDERED: GLYCOPYRROLATE 0.2 MG/ML 2 ML VIAL ONE (11:07)
[2018-04-05] MEDS ORDERED: NEOSTIGMINE 1 MG/ML 10 ML VIAL ONE (11:07)
[2018-04-05] MEDS ORDERED: LIDOCAINE 1% INJ 10MG/ML (20 ML MDV) ONE (11:07)
[2018-04-05] MEDS ORDERED: ROCURONIUM BROMIDE 10 MG/ML 10 ML VIAL IV ONE (11:07)
[2018-04-05] MEDS ORDERED: MIDAZOLAM 2 MG/2 ML VIAL ONE (11:07)
[2018-04-05] MEDS ORDERED: fentaNYL (PF) 50 MCG/ML 2 ML AMP ONE (11:07)
[2018-04-05] MEDS ORDERED: PROPOFOL 10 MG/ML 20 ML VIAL IV ONE (11:07)
[2018-04-05] MEDS: ceFAZolin IN SWFI 2 GM/20 ML SYRINGE IVP ONE ×2 (11:10→11:27)
[2018-04-05] MEDS ORDERED: LACTATED RINGERS 1,000 ML IV ONE (11:49)
[2018-04-05] MEDS ORDERED: MEPERIDINE 50 MG/ML SYRINGE IVP ONE (12:10)
[2018-04-05 12:11] VITALS: TEMP 96.8
[2018-04-05] MEDS ORDERED: diphenhydrAMINE 50 MG/ML 1 ML VIAL IVP ONE (12:23)
[2018-04-05 12:49] VITALS: RESP 18
[2018-04-05] MEDS ORDERED: HYDROcodone/APAP 7.5-325MG 1 EACH TAB PO ONE (13:03)
[2018-04-05 13:46] VITALS: BP 134/76; PULSE 66
--- NOTE | 2018-04-12 15:39 | P.OP ---
Date of Procedure: 04/05/18 Preoperative Diagnosis: Cholecystitis Postoperative Diagnosis: Cholecystitis Procedure(s) Performed: Laparoscopic cholecystectomy Anesthesia: [place] Surgeon: Kolton Gregg Estimated Blood Loss (ml): 5 Pathology: other (Gallbladder) Condition: stable Disposition: PACU Description of Procedure: The patient was placed on the operating table. The patient received a general endotracheal tube anesthesia. The patients abdomen was prepped and draped in the usual sterile fashion. Through an infraumbilical stab incision, the fascia of the anterior abdominal wall was grasped with a pair of Kochers and then the Veress needle was placed in the peritoneal cavity. Position of the Veress needle was confirmed with positive drop test. The abdomen was then insufflated. After adequate insufflation, the 10 mm trocar was placed in the peritoneal cavity. Following this the laparoscope was placed in the peritoneal cavity. The patient was placed in the head-up, right side up position and then a 5 mm trocar was placed in the right lateral and right subcostal position under direct visualization. A 8 mm trocar was placed in the epigastric position. The gallbladder was grasped in the fundus and infundibulum. Traction on the gallbladder was placed in the lateral and the cephalad positions. The triangle of Calot was visualized.. The cystic duct was bluntly dissected until the union of the cystic duct and common bile duct was seen. The cystic duct was then divided and sealed with the Harmonic scissors. A PDS Endoloop was then placed throughout the cystic duct stump. The cystic artery divided and sealed with the Harmonic scissors. The gallbladder was then removed from the liver bed using Harmonic scissors. The gallbladder was then extracted through the epigastric port site. Operative field was checked for any bleeding spots and Harmonic scissors was used to coagulate the liver bed. The abdomen was irrigated. The trocars were removed. The skin was closed using interrupted 3-0 Vicryl suture. Dermabond dressing were applied. The patient tolerated the procedure well.
== END 2018-04-05 14:14 | disposition home or self-care (01) ==
LOC: OR 09:17
PROVIDERS: ATTEND Surgery
DX: K81.1 Chronic cholecystitis (principal); M79.7 Fibromyalgia; I10 Essential (primary) hypertension; B19.20 Unspecified viral hepatitis C without hepatic coma; M19.90 Unspecified osteoarthritis, unspecified site; M06.9 Rheumatoid arthritis, unspecified; M1A.9XX0 Chronic gout, unspecified, without tophus (tophi); M48.00 Spinal stenosis, site unspecified; L30.9 Dermatitis, unspecified; Z79.1 Long term (current) use of non-steroidal anti-inflammatories (NSAID); Z79.899 Other long term (current) drug therapy; Z88.8 Allergy status to other drugs, medicaments and biological substances; Z98.1 Arthrodesis status
CPT/HCPCS: 88304; 47562; J2250; J1200; J1644; J1100; J2710; J2175; J2405; J2001; J3010; J1885; J1170; J2704; J0690

== ENCOUNTER → 2018-05-05 | Outpatient (CLI) | payer OTHER ==
--- NOTE | 2018-05-05 14:14 | XR ---
Lumbar spine HISTORY: Intervertebral disc degeneration, postop 3 views of lumbar spine Correlation to prior exam 11/23/2017 Patient is status post posterior lumbar fusion at L4-5 S1. Screws transgress the anterior cortex of L 5 and S1 anteriorly as on prior exam. Multilevel spondylosis is present. Alignment is maintained. Mil d anterior wedging of L1 is stable. Intervertebral spacing blocks again noted. Postop changes noted t o the right sacroiliac joint. Surgical wale are present. IMPRESSION: Degenerative disc disease, neurosurgical follow-up
== END | disposition home or self-care (01) ==
LOC: RADXRMAIN 09:44
PROVIDERS: ATTEND Neurological Surgery
DX: M51.36 Other intervertebral disc degeneration, lumbar region (principal); Z98.1 Arthrodesis status
CPT/HCPCS: 72100

== ENCOUNTER 2018-07-01 18:14 | Emergency (ER) | payer MEDICARE, OTHER ==
[2018-07-01 18:22] VITALS: BP 128/85; PULSE 102; RESP 20; TEMP 98
--- NOTE | 2018-07-01 19:16 | XR ---
EXAMINATION TYPE: XR lumbosacral spine min 4V DATE OF EXAM: 07/01/2018 COMPARISON: 05/05/2018 HISTORY: Back pain TECHNIQUE: 5 views FINDINGS: There are rods and screws fusing posteriorly the lumbar spine from L4 to S1. There is disc prosthesis at L4-5 and L5-S1. There is no compression fracture. Sacroiliac joints are intact. There a re plates bridging the right sacroiliac joint. I see no focal bone destruction. IMPRESSION: Previous surgery. No fracture seen. No change compared to old exam.
--- NOTE | 2018-07-01 19:17 | ED ---
Back Pain HPI - General Chief Complaint: Back Pain/Injury Stated Complaint: back injury Time Seen by Provider: 07/01/18 18:24 Source: patient Limitations: no limitations - History of Present Illness Initial Comments: 32-year-old male patient presents to the emergency department today for evaluation of increased low back pain. Patient does have history of chronic back pain with multiple lumbar surgeries. Patient states about an hour ago he was working on a car when it fell off the evy and landed on the blocks. Patient states the car did not crush him, it did cause him to twist his back rapidly. He states that he is having pain radiation down the right leg but this is not new after the injury today. States he is having some tingling to his feet but this is also chronic. States he is having pain to the mid low back. Denies any saddle anesthesia or loss of bowel or bladder control. Denies any need for pain medicine at this time. He is able to ambulate without difficulty. Patient denies any headache, neck pain, back pain, chest pain, shortness of breath, dizziness, weakness, abdominal pain, nausea, vomiting, or difficulties with bowel movements or urination. - Related Data Home Medications Medication Instructions Recorded Confirmed Hydroxychloroquine Sulfate 200 mg PO DAILY 08/13/16 04/05/18 [Plaquenil] Allopurinol [Zyloprim] 100 mg PO DAILY 10/27/16 04/05/18 Colchicine 0.6 mg PO DAILY 12/30/16 04/05/18 Meloxicam [Mobic] 15 mg PO DAILY 12/30/16 04/05/18 Amitriptyline HCl [Elavil] 75 mg PO HS 08/16/17 04/05/18 Baclofen [Lioresal] 10 mg PO Q8H 08/16/17 04/05/18 Gabapentin 800 mg PO Q8H 08/16/17 04/05/18 Morphine Sulfate Ir [MSIR] 15 mg PO QID PRN 08/16/17 04/05/18 amLODIPine [Norvasc] 10 mg PO DAILY 04/02/18 04/05/18 Previous Rx's Medication Instructions Recorded Docusate [Colace] 100 mg PO BID #20 capsule 04/05/18 Docusate [Colace] 100 mg PO BID #20 capsule 04/05/18 HYDROcodone/APAP 7.5-325MG [[place] 1 tab PO Q4H PRN 3 Days #18 tab 04/05/18 7.5-325] HYDROcodone/APAP 7.5-325MG [[place] 1 tab PO Q4H PRN 3 Days #18 tab 04/05/18 7.5-325] Allergies Allergy/AdvReac Type Severity Reaction Status Date / Time prednisone Allergy Rash/Hives Verified 07/01/18 18:21 Review of Systems ROS Statement: Those systems with pertinent positive or pertinent negative responses have been documented in the HPI. ROS Other: All systems not noted in ROS Statement are negative. Past Medical History Past Medical History: Fibromyalgia, Hypertension, Liver Disease, Osteoarthritis (OA), Rheumatoid Arthritis (RA), Skin Disorder Additional Past Medical History / Comment(s): "hepatitis C antibody". Hx of severe dental caries. chronic gout, DDD, spinal stenosis, constipation from pain meds, eczema, History of Any Multi-Drug Resistant Organisms: None Reported Past Surgical History: Back Surgery, Cholecystectomy, Orthopedic Surgery Additional Past Surgical History / Comment(s): back fusion with cage Lumbar total 3 back surgeries, rt ankle ORIF, Past Anesthesia/Blood Transfusion Reactions: No Reported Reaction Past Psychological History: Panic Disorder Smoking Status: Never smoker Past Alcohol Use History: None Reported Past Drug Use History: None Reported - Past Family History Mother Family Medical History: No Reported History General Exam Limitations: no limitations General appearance: alert, in no apparent distress, other (This is a well- developed, well-nourished adult male patient in no acute distress. Vital signs upon presentation are temperature 98.0F, pulse 102, respirations 20, blood pressure 128/85, pulse ox 100% on room air.) Eye exam: Present: normal appearance, PERRL, EOMI. Absent: scleral icterus, conjunctival injection, periorbital swelling ENT exam: Present: normal exam, normal oropharynx, mucous membranes moist Respiratory exam: Present: normal lung sounds bilaterally. Absent: respiratory distress, wheezes, rales, rhonchi, stridor Cardiovascular Exam: Present: regular rate, normal rhythm, normal heart sounds. Absent: systolic murmur, diastolic murmur, rubs, gallop, clicks GI/Abdominal exam: Present: soft, normal bowel sounds. Absent: distended, tenderness, guarding, rebound, rigid Extremities exam: Present: normal inspection, full ROM, normal capillary refill , other (Skin to the lower extremities is pink, warm, and dry. Cap refills less than 3 seconds. Pedal posttibial pulses are 2+ and equal bilaterally.). Absent: tenderness, pedal edema, joint swelling, calf tenderness Back exam: Present: normal inspection, vertebral tenderness (Lumbar tenderness) , other (No surface trauma) Neurological exam: Present: alert, oriented X3, CN II-XII intact Psychiatric exam: Present: normal affect, normal mood Skin exam: Present: warm, dry, intact, normal color. Absent: rash Course Vital Signs 07/01/18 18:16 Temperature 98.0 F Pulse Rate 102 H Respiratory 20 Rate Blood Pressure 128/85 O2 Sat by Pulse 100 Oximetry Medical Decision Making - Medical Decision Making 32-year-old male patient presented to the emergency department today for evaluation of increased low back pain after an injury while working on a car. Physical examination did reveal some mild tenderness to the lumbar spine. No evidence of surface trauma. X-ray showed no acute fractures, no changes compared to old x-ray exam. Patient is neurologically and neurovascularly intact. We discharged home with instructions to take his home pain medication. He is instructed to apply ice and warm moist heat to the low back. He is instructed to follow-up with his primary care physician for recheck in 1-2 days. Return parameters discussed in detail. He verbalizes understanding and agrees with this plan. - Radiology Data Radiology results: report reviewed, image reviewed 5 views of the lumbosacral spine are obtained. Report was reviewed in its entirety. Impression by Dr. Lopez shows previous surgery with no fracture seen. No change compared to old exam. Disposition Clinical Impression: Acute exacerbation of chronic low back pain Disposition: HOME SELF-CARE Condition: Good Instructions: Acute Low Back Pain (ED), Chronic Back Pain (ED) Additional Instructions: Take all medications as directed. Apply warm moist heat to the low back at least 20 minutes at a time 4 times daily. Follow-up with primary care physician for recheck in 1-2 days. Return immediately for any new, worsening, or concerning symptoms. Is patient prescribed a controlled substance at d/c from ED?: No Referrals: Solange Tong MD [Primary Care Provider] - 1-2 days Time of Disposition: 20:05
== END 2018-07-01 20:09 | disposition home or self-care (01) ==
LOC: EC 18:14
DX: M54.5 Low back pain (principal); G89.29 Other chronic pain; M79.7 Fibromyalgia; I10 Essential (primary) hypertension; M19.90 Unspecified osteoarthritis, unspecified site; M06.9 Rheumatoid arthritis, unspecified; M10.9 Gout, unspecified; F41.0 Panic disorder [episodic paroxysmal anxiety]; Z79.1 Long term (current) use of non-steroidal anti-inflammatories (NSAID); Z79.899 Other long term (current) drug therapy; Z88.8 Allergy status to other drugs, medicaments and biological substances
CPT/HCPCS: 72110; 99283

== ENCOUNTER 2018-08-07 14:00 | Emergency (ER) | payer MEDICARE, OTHER ==
[2018-08-07] MEDS ORDERED: IBUPROFEN 600 MG TAB PO ONE (14:26)
[2018-08-07] MEDS ORDERED: SODIUM CHLORIDE 0.9% 1,000 ML BAG ONE (14:26)
--- NOTE | 2018-08-07 23:34 | XR ---
EXAMINATION TYPE: Chest 2 views DATE OF EXAM: 08/07/2018 COMPARISON: None HISTORY: 32-year-old male with chest pain FINDINGS: Heart normal size. Aorta and pulmonary vasculature within normal limits. Some strandy atelectasis at the right base. No consolidation or pleural effusion. IMPRESSION: No acute cardiopulmonary process.
[2018-08-08 02:11] LABS: INR 1.2 (<1.2); Partial Thromboplastin Time 27.6 sec (22.0-30.0); Prothrombin Time 12.2 sec (9.0-12.0)
[2018-08-08 02:19] LABS: Appearance,Urine Cloudy (Clear); Bilirubin,Urine 1+ (Negative); Blood,Urine Negative (Negative); Color,Urine Orange; Glucose,Urine (UA) Negative (Negative); Ketones,Urine Negative (Negative); Leukocyte Esterase,Urine Negative (Negative); Mucus,Urine Moderate /hpf; Nitrite,Urine Negative (Negative); Protein,Urine 1+ (Negative); RBC,Urine 1 /hpf (0-5); Specific Gravity,Urine 1.026 (1.001-1.035); WBC,Urine 2 /hpf (0-5)
[2018-08-08 02:50] LABS: Basophils % (A) 1 %; Eosinophils # (A) 0.1 k/uL (0-0.7); Eosinophils % (A) 2 %; HCT 39.4 % (39.0-53.0); HGB 13.2 gm/dL (13.0-17.5); Lymphocytes # (A) 0.4 k/uL (1.0-4.8); Lymphocytes % (A) 12 %; MCH 27.8 pg (25.0-35.0); MCHC 33.5 g/dL (31.0-37.0); MCV 82.9 fL (80.0-100.0); Mean Platelet Volume 7.3; Monocytes # (A) 0.2 k/uL (0-1.0); Monocytes % (A) 6 %; Neutrophils # (A) 2.7 k/uL (1.3-7.7); Neutrophils % (A) 76 %; Platelet Count 200 k/uL (150-450); RBC 4.75 m/uL (4.30-5.90); RDW 13.5 % (11.5-15.5); WBC 3.5 k/uL (3.8-10.6)
--- NOTE | 2018-08-08 10:04 | US ---
EXAMINATION TYPE: Ultrasound liver DATE OF EXAM: 08/07/2018 COMPARISON: None HISTORY: 32-year-old male IV drug user, elevated liver enzymes. TECHNIQUE: Multiple sonographic images of the right upper quadrant are obtained. FINDINGS: Property Staff Accountant notes: Difficult and limited exam due to overlying bowel gas MEASUREMENTS: Liver Length: 18.1 cm Gallbladder Wall: Surgically absent CBD: 6.2 mm Right Kidney: 11.0 x 4.6 x 4.6 cm 1. Pancreas: Obscured by bowel gas 2. Liver: Heterogeneous, enlarged 3. Gallbladder: Surgically absent Evidence for sonographic Siegel's sign? No 4. CBD: wnl as visualized post cholecystectomy 5. Right Kidney: No hydronephrosis. No cystic or solid areas visualized. IMPRESSION: 1. Mild hepatomegaly (18.1 cm) with slight heterogeneous appearance. Correlate for nonspecific hepato cellular disease. 2. Mildly dilated bile duct at 6.2 mm. This may be due to postcholecystectomy status. Correlate with alkaline phosphatase and bilirubin levels.
--- NOTE | 2018-08-08 10:04 | US ---
EXAMINATION TYPE: Ultrasound venous Doppler of upper extremity left DATE OF EXAM: 08/07/2018 COMPARISON: None HISTORY: 32-year-old male IV drug user. Pain and swelling at areas of recent IV drug use SIDE PERFORMED: Left PREVIOUS EXAM: None FINDINGS: VESSELS IMAGED: IJV Subclavian Vein Axilla Vein Brachial Vein(s) Radial Paired Veins Ulnar Paired Veins Cephalic Vein * Basilic Vein * (* superficial vessels) Marketing Sales Supervisor notes: Left Arm: Negative for DVT. Positive for SVT at the areas of needle insertion on the patient?s left f orearm IMPRESSION: 1. No evidence for DVT within the left upper extremity. 2. However, the exam is positive for SVT at the site of needle insertion, left forearm. IMPRESSION:
[2018-08-08 12:30] LABS: ALT 149 U/L (21-72); AST 237 U/L (17-59); Albumin 4.1 g/dL (3.5-5.0); Alkaline Phosphatase 148 U/L (38-126); Amylase <30 U/L (30-110); Anion Gap 11 mmol/L; Blood Urea Nitrogen 13 mg/dL (9-20); Calcium 9.1 mg/dL (8.4-10.2); Carbon Dioxide 28 mmol/L (22-30); Chloride 100 mmol/L (98-107); Glucose 106 mg/dL (74-99); Lipase 46 U/L (23-300); Potassium 4.4 mmol/L (3.5-5.1); Sodium 139 mmol/L (137-145); Total Bilirubin 2.7 mg/dL (0.2-1.3); Total Protein 7.8 g/dL (6.3-8.2)
== END 2018-08-07 19:00 | disposition left against medical advice (07) ==
LOC: EC 14:00
DX: R74.0 Nonspecific elevation of levels of transaminase and lactic acid dehydrogenase [LDH] (principal); R50.9 Fever, unspecified; M79.622 Pain in left upper arm; I47.1 Supraventricular tachycardia
CPT/HCPCS: 36415; 71046; 76705; 80053; 81001; 82150; 83605; 83690; 85025; 85610; 85730; 87040; 87502; 96360; 99284

== ENCOUNTER 2019-02-07 09:16 | Emergency (ER) | payer MEDICARE, OTHER ==
[2019-02-07 09:36] VITALS: BP 148/91; TEMP 98.7
[2019-02-07] MEDS ORDERED: IPRATROPIUM-ALBUTEROL 3 ML NEB INHALATION STA (10:17)
--- NOTE | 2019-02-07 10:19 | ED ---
General Adult HPI - General Chief complaint: Upper Respiratory Infection Stated complaint: coughing up blood; gallo Time Seen by Provider: 02/07/19 09:52 Source: patient, RN notes reviewed Mode of arrival: ambulatory Limitations: no limitations - History of Present Illness Initial comments: 33-year-old male presents emergency Department chief complaint of cough congestion for 2 weeks. Patient states that he's had a productive cough with yellow and green sputum. Patient states that he's been coughing so hard that he noticed some specks of blood. He denies any current chest pain or pleuritic chest pain. Patient states that he is a half a day pack smoker. Patient denies any prior lung disease. Denies fevers or chills denies any headache or dizz iness does complain of mild nasal congestion. Patient denies any leg pain, leg swelling. Patient denies any nausea vomiting diarrhea constipation. Patient denies any sick contacts. - Related Data Home Medications Medication Instructions Recorded Confirmed Hydroxychloroquine Sulfate 200 mg PO BID 08/13/16 02/07/19 [Plaquenil] Allopurinol [Zyloprim] 100 mg PO DAILY 10/27/16 02/07/19 Colchicine 0.6 mg PO DAILY 12/30/16 02/07/19 Meloxicam [Mobic] 15 mg PO DAILY 12/30/16 02/07/19 Amitriptyline HCl [Elavil] 75 mg PO HS 08/16/17 02/07/19 Gabapentin 800 mg PO Q8H 08/16/17 02/07/19 amLODIPine [Norvasc] 10 mg PO DAILY 04/02/18 02/07/19 Previous Rx's Medication Instructions Recorded Docusate [Colace] 100 mg PO BID #20 capsule 04/05/18 Albuterol Sulfate [Proair Hfa] 1 - 2 puff INHALATION Q4HR PRN #1 02/07/19 inhaler Azithromycin [Zithromax Z-pack] 0 mg PO DIRECTED #1 pack 02/07/19 Allergies Allergy/AdvReac Type Severity Reaction Status Date / Time prednisone Allergy Rash/Hives Verified 02/07/19 09:58 Review of Systems ROS Statement: Those systems with pertinent positive or pertinent negative responses have been documented in the HPI. ROS Other: All systems not noted in ROS Statement are negative. Past Medical History Past Medical History: Fibromyalgia, Hypertension, Liver Disease, Osteoarthritis (OA), Rheumatoid Arthritis (RA), Skin Disorder Additional Past Medical History / Comment(s): "hepatitis C antibody". Hx of severe dental caries. chronic gout, DDD, spinal stenosis, constipation from pain meds, eczema, History of Any Multi-Drug Resistant Organisms: None Reported Past Surgical History: Back Surgery, Cholecystectomy, Orthopedic Surgery Additional Past Surgical History / Comment(s): back fusion with cage Lumbar total 3 back surgeries, rt ankle ORIF, Past Anesthesia/Blood Transfusion Reactions: No Reported Reaction Past Psychological History: Panic Disorder Smoking Status: Current every day smoker Past Alcohol Use History: None Reported Past Drug Use History: None Reported, Heroin - Past Family History Mother Family Medical History: No Reported History General Exam Limitations: no limitations General appearance: alert, in no apparent distress Head exam: Present: atraumatic, normocephalic, normal inspection Neck exam: Present: normal inspection, full ROM. Absent: tenderness, meningismus, lymphadenopathy Respiratory exam: Present: wheezes, rhonchi. Absent: normal lung sounds bilaterally, respiratory distress, rales, stridor Cardiovascular Exam: Present: regular rate, normal rhythm, normal heart sounds. Absent: systolic murmur, diastolic murmur, rubs, gallop, clicks Extremities exam: Present: pedal edema Skin exam: Present: warm, dry, intact, normal color. Absent: rash Course Vital Signs 02/07/19 09:33 Temperature 98.7 F Pulse Rate 89 Respiratory 18 Rate Blood Pressure 148/91 O2 Sat by Pulse 97 Oximetry Medical Decision Making - Medical Decision Making 33-year-old male presented from for productive cough, shortness breath. Patient has been sick for 2 weeks. Patient did report he had some specks of blood this related to infection. Patient chest x-ray shows evidence of left lower lobe p neumonia. Patient was given Rocephin will be discharged on azithromycin. Temperature discussed. Disposition Clinical Impression: Pneumonia Disposition: HOME SELF-CARE Condition: Stable Instructions (If sedation given, give patient instructions): Bacterial Pneumonia (ED) Additional Instructions: Please return to the Emergency Department if symptoms worsen or any other concerns. Prescriptions: Albuterol Sulfate [Proair Hfa] 1 - 2 puff INHALATION Q4HR PRN #1 inhaler PRN Reason: difficulty in breathing Azithromycin [Zithromax Z-pack] 0 mg PO DIRECTED #1 pack Is patient prescribed a controlled substance at d/c from ED?: No Referrals: Solange Tong MD [Primary Care Provider] - 1-2 days Time of Disposition: 11:47
--- NOTE | 2019-02-07 10:25 | XR ---
EXAMINATION TYPE: XR chest 2V DATE OF EXAM: 02/07/2019 COMPARISON: Prior chest x-ray 08/07/2018 HISTORY: Cough and shortness of breath, pain TECHNIQUE: Frontal and lateral views of the chest are obtained. FINDINGS: Question patchy density at the level of the posterior chest seen best on the lateral exam. There is no pleural effusion or pneumothorax seen. The cardiac silhouette size is within normal limi ts. The osseous structures are intact. IMPRESSION: Cannot exclude lower lobe pneumonia. Correlate, follow-up as indicated.
[2019-02-07] MEDS ORDERED: cefTRIAXone 1,000 MG VIAL (IM USE) IM STA (11:46)
[2019-02-07] MEDS ORDERED: LIDOCAINE 1% INJ 10MG/ML (20 ML MDV) SQ ONE (12:06)
[2019-02-07 12:11] VITALS: RESP 16
[2019-02-07 12:24] VITALS: PULSE 78
--- NOTE | 2019-02-08 05:41 | CDI ---
Documentation Clarification OP Dear Wai DAUGHERTY, PAC Please do addendum for procedure related to Lidocaine administration. Thank you, Sierra Tompkins Clicker Operator If you have any question, Please contact executive kitchen manager at [phone] i did not use any lido, that was a nurse administration for rocephin MTDD
== END 2019-02-07 12:25 | disposition home or self-care (01) ==
LOC: EC 09:16
DX: J18.1 Lobar pneumonia, unspecified organism (principal); M79.7 Fibromyalgia; I10 Essential (primary) hypertension; M06.9 Rheumatoid arthritis, unspecified; M19.90 Unspecified osteoarthritis, unspecified site; M10.9 Gout, unspecified; F41.0 Panic disorder [episodic paroxysmal anxiety]; F17.210 Nicotine dependence, cigarettes, uncomplicated; Z88.8 Allergy status to other drugs, medicaments and biological substances; Z79.1 Long term (current) use of non-steroidal anti-inflammatories (NSAID); Z79.899 Other long term (current) drug therapy; Z98.1 Arthrodesis status
CPT/HCPCS: 99285; 96372; 94640; 71046; J2001; J0696